=== PATIENT | female | born 2000 | race Caucasian/White ===

== ENCOUNTER 2022-02-18 11:06 | Outpatient (REF) | payer OTHER, SELFPAY ==
[2022-02-18 14:01] LABS: MANUAL DIFF FLAG NO
[2022-02-18 14:06] LABS: Basophils Percent Auto 0.5 % (0-2); Eosinophils Absolute Auto 0.1 X10*3/uL (0.0-0.4); Eosinophils Percent Auto 0.9 % (0-4); Hematocrit 42.3 % (37.0-47.0); Hemoglobin 14.2 g/dl (12.0-16.0); Imm Gran Abs Auto 0.02 X10*3/uL (0.00-0.03); Imm Gran Pct Auto 0.3 % (0.0-0.4); Lymphocytes Absolute Auto 3.4 X10*3/uL (1.2-4.9); Lymphocytes Percent Auto 51.1 % (20-40); Mean Corpuscular HGB Conc 33.6 g/dl (31.0-35.0); Mean Corpuscular Volume 83.4 fL (80.0-98.0); Mean Platelet Volume 9.6 fL (9.4-12.3); Monocytes Absolute Auto 0.6 X10*3/uL (0.1-1.2); Monocytes Percent Auto 8.7 % (2-11); Neutrophils Absolute Auto 2.5 x10*3/uL (2.0-8.3); Neutrophils Percent Auto 38.5 % (45-73); Platelet Count 338 X10*3/uL (160-400); Red Blood Count 5.07 X10*6/uL (4.20-5.50); Red Cell Distribution Width 12.9 % (11.0-16.0); White Blood Count 6.6 X10*3/uL (4.8-10.8)
[2022-02-18 14:28] LABS: Alanine Aminotransferase 16 U/L (0-31); Albumin Level 4.6 g/dL (3.5-5.0); Alkaline Phosphatase 61 U/L (39-117); Anion Gap 18 (12-20); Aspartate Amino Transferase 15 U/L (5-31); Bilirubin Total 0.2 mg/dL (0.0-1.0); Blood Urea Nitrogen 14 mg/dL (9-16); Calcium 9.6 mg/dL (8.4-10.2); Carbon Dioxide 26 mmol/L (22-29); Chloride 103 mmol/L (96-108); Estimated Glomerular Filt Rate > 60; Glucose Random 108 mg/dL (60-115); Potassium 4.1 mmol/L (3.3-5.1); Sodium 143 mmol/L (135-145); Total Protein 7.7 g/dL (6.5-8.0)
[2022-02-18 14:40] LABS: TSH reflex Free T4 0.21 uIU/mL (0.32-4.0); Vitamin D 25-OH Total 30.2 ng/mL (>30)
[2022-02-18 15:05] LABS: Folate > 20.0 ng/mL (> or = 4.0); Vitamin B12 416 pg/mL (200-900)
[2022-02-18 15:17] LABS: Free T4 (Free Thyroxine) 1.29 ng/dL (0.71-1.85)
== END 2022-02-18 11:07 | disposition home or self-care (01) ==
LOC: HO.WFDLDS 11:06
PROVIDERS: Visit Provider Nurse Practitioner Family
DX: Z00.00 Encounter for general adult medical examination without abnormal findings (principal); R53.83 Other fatigue
CPT/HCPCS: 36415; 80053; 82306; 82607; 82746; 84439; 84443; 85025

== ENCOUNTER → 2022-03-01 08:02 | Outpatient (BNVA) | payer OTHER, SELFPAY | PROVIDERS: PCP Nurse Practitioner Family; Visit Provider Internal Medicine Endocrinology, Diabetes & Metabolism | DX: R94.6 Abnormal results of thyroid function studies (principal) | CPT/HCPCS: 36415; 84439; 84443; 84481; 99202 ==

== ENCOUNTER 2022-03-01 09:34 | Outpatient (REF) | payer OTHER, SELFPAY ==
[2022-03-01 12:23] LABS: Thyroid Stimulating Hormone 0.41 uIU/mL (0.32-4.0)
[2022-03-02 15:56] LABS: Triiodothyronine T3 Free 3.6 pg/mL (3.0-4.7)
== END 2022-03-01 09:35 | disposition home or self-care (01) ==
LOC: HO.WFDLDS 09:34
PROVIDERS: Visit Provider Internal Medicine Endocrinology, Diabetes & Metabolism
DX: Z13.89 Encounter for screening for other disorder (principal)
CPT/HCPCS: 36415; 84439; 84443; 84481

== ENCOUNTER 2022-03-29 10:35 | Outpatient (REF) | payer OTHER, SELFPAY ==
--- NOTE | ~2022-03-29 | FL_ITS ---
EXAMINATION: UPPER GI/BARIUM SWALLOW CLINICAL INFORMATION: Dysphagia COMPARISON: None TECHNIQUE: Routine barium swallow/upper GI air-contrast exam was performed in upright and lying position. FINDINGS: Following oral administration of thick barium and effervescent granules there is normal propagation of bolus from the oral cavity through the pharynx, esophagus into stomach without any evidence of obstruction, narrowing or stricture. On placing patient prone and supine the course, caliber and peristalsis of the stomach and the duodenal bulb is normal. There is mild gastroesophageal reflux without hiatal hernia. The mucosal pattern of the stomach, duodenal bulb and the sweep is normal. FL/FL upper GI w Ba Swallow IMPRESSION: Minimal gastroesophageal reflux without hiatal hernia. The esophagus and upper GI exam is unremarkable. Fluoroscopy time: 2.3 minutes. Dose area product: 30.152 gycm2.
== END 2022-03-29 10:36 | disposition home or self-care (01) ==
LOC: HO.XRAY 10:35
PROVIDERS: PCP Nurse Practitioner Family; Visit Provider Nurse Practitioner Family
DX: R13.10 Dysphagia, unspecified (principal)
CPT/HCPCS: 74240

== ENCOUNTER 2023-03-22 15:02 | Outpatient (AMB) | payer OTHER, SELFPAY ==
[2023-03-22 15:06] VITALS: BP 124/90; PULSE 75; O2SAT 99; BMI 29.2
--- NOTE | 2023-03-22 15:06 | MHC.PC.OV ---
Vital Signs 03/22/23 15:06 Height 5 ft 4.5 in Weight 173 lb BMI 29.2 BP 124/90 H Blood Pressure Location Lt brachial Position Sitting Pulse 75 Pulse Source Pulse Oximeter Pulse Oximetry (%) 99 Oxygen Delivery Method Room Air Intake Visit Reasons: Annual Exam Intake Note: Patient is here today for a physical. Customer Management Specialist Required: No Allergies No Known Allergies Allergy (Verified 03/22/23 15:14) Medication List - Last Reconciled 03/22/23 by VIKTOR Russo hydroxyzine HCl 25 mg PO BEDTIME PRN levonorgestrel-ethinyl estrad 0.1-20 mg-mcg (Sronyx) 1 tab PO DAILY Tobacco use date assessed: 03/22/23 Dental Screening Dental Screen Date: 03/22/23 Did you have a dental visit in the last 12 months?: Yes Did you have a dental problem in the last 6 months where you did not have access to dental care?: No Was dental information given to patient?: Patient has dentist HPI Annual Exam HPI Details Patient is a 22-year-old female who presents today for physical exam. Medical history significant for anxiety, ADHD, depression. Today we discussed patient's need for tetanus vaccine. Patient reports normal Pap smear 2022 with her engineering geologist at [facility]. Patient reports that she was on Adderall in the past for ADHD, she would like to restart Adderall as she will be starting school, she stopped taking Adderall in 2019, will refer to Psychiatry for an evaluation and treatment. Patient also reports that she was on sertraline in the past for depression/anxiety, she would like to restart this, not interested in counseling referral. No shortness of breath or chest pain. Requested TB test for school. [facility] Medical History (Updated 03/22/23 @ 16:13 by VIKTOR Russo) Low TSH level GERD (gastroesophageal reflux disease) Fatigue Difficulty swallowing Surgical History History of placement of ear tubes Hx of tonsillectomy Family History Mother Medical history unknown Father Medical history unknown Social History Housing: House Patient Tobacco Use Status: Former Tobacco user Tobacco use type: Cigarette Years Smoked: pt stated quit 2yrs ago e-Cigarette/Vaping Use: Currently Using service: No Current occupational status: employed Cognitive needs: No Hearing needs: No Vision needs: Yes (glasses) Questionnaire PHQ-9 Over the last 2 weeks, how often have you been bothered by any of the following problems? 1. Little interest or pleasure in doing things: not at all 2. Feeling down, depressed, or hopeless: not at all 3. Trouble falling or staying asleep, or sleeping too much: not at all 4. Feeling tired or having little energy: not at all 5. Poor appetite or overeating: not at all 6. Feeling bad about yourself - or that you are a failure or have let yourself or your family down: not at all 7. Trouble concentrating on things, such as reading the newspaper or watching television: not at all 8. Moving or speaking so slowly that other people could have noticed. Or the opposite - being so fidgety or restless that you have been moving around a lot more than usual: not at all 9. Thoughts that you would be better off or of hurting yourself in some way: not at all Total score: 0 Depression Screening Interpretation: Negative Depression Screening Done: Yes 07175 - PHQ-9 Billing: Yes Source: Developed by Drs. Lyndon Merchant, Sia Lind, Sachin Gurrola and colleagues, with an educational gulshan from [employer]. Thrive Questionnaire Date Thrive assessed: 03/24/22 AUDIT C Alcohol Use Questionnaire (AUDIT-C) 1. How often do you have a drink containing alcohol?: Never 2. How many drinks containing alcohol do you have on a typical day when you are drinking?: 1 or 2 (0) 3. How often do you have six or more drinks on one occasion?: Never Total Score: 0 Score Reviewed/Action Taken: No SHAAN-7 AMB Questionnaire SHAAN-7 Date SHAAN - 7 assessed: 03/22/23 Feeling nervous, anxious, or on edge: 0 = Not at all Not being able to stop or control worryin = Not at all Worrying too much about different things: 0 = Not at all Trouble relaxin = Not at all Being so restless that it is hard to sit still: 0 = Not at all Becoming easily annoyed or irritable: 0 = Not at all Feeling afraid as if something awful might happen: 0 = Not at all Total SHAAN-7 score (0-4 normal; 5-9 mild; 10-14 moderate; 15-21 severe): 0 Source: Developed by Drs. Lyndon Merchant, Sia Lind, Sachin Gurrola and colleagues, with an educational gulshan from [employer]. SHAAN-7 Assessment Billing SHAAN-7 Assessment Tool: SHAAN-7 Assessment 87689 Review of Systems Const Denies body aches, Denies chills, Denies fever(s) and Denies headache(s) Eyes Denies change in vision ENT Denies dizziness, Denies otalgia, Denies headache(s), Denies nasal discharge, Denies sinus pain and Denies sore throat Card Denies chest pain, Denies edema, Denies lightheadedness and Denies dyspnea Resp Denies cough, Denies dyspnea and Denies wheezing GI Denies abdominal pain, Denies constipation, Denies diarrhea, Denies nausea and Denies vomiting Denies dysuria Musc Denies myalgias Skin/Breast Denies rash Neuro Denies dizziness and Denies headache(s) Psych Reports anxiety and Reports depression Aller/Immun Denies wheezing Physical exam (Primary Care) Vital Signs: Last Vital Signs Pulse 75 03/22/23 15:06 BP 124/90 H 03/22/23 15:06 Pulse Ox 99 03/22/23 15:06 Oxygen Delivery Method Room Air 03/22/23 15:06 BMI result Body Mass Index 29.2 Tobacco/Smoking Status: Tobacco use Status Tobacco use date assessed 03/22/23 03/22/23 15:07 Patient Tobacco Use Status Former Tobacco user 03/22/23 15:07 Tobacco use type Cigarette 03/22/23 15:07 e-Cigarette/Vaping Use Currently Using 03/22/23 15:07 PHQ-9: PHQ-9 Score PHQ-9: Total score 0 03/22/23 15:18 Depression Screening Interpretation: Negative Thrive Assessment: Date of Thrive Assessment Date Thrive assessed 03/24/22 03/22/23 15:07 Const General: cooperative and no acute distress Orientation/consciousness: patient oriented x3 HENMT Head: Yes normocephalic and Yes atraumatic Ears: TM's normal bilaterally Face and sinus: Yes sinuses nontender Mouth: oropharynx normal and moist mucous membranes Throat: Yes posterior oropharynx normal Eyes General: appearance normal, both eyes and all related structures Pupils: Equal, round and reactive pupils present EOM: EOMs intact bilaterally Neck Neck: Yes normal visual inspection, Yes full ROM and Yes no lymphadenopathy Thyroid: Thyroid normal Resp Effort & Inspection: normal respiratory effort and able to speak in complete sentences Auscultation: clear to auscultation bilaterally, no crackles, no rales, no rhonchi and no wheezes Cardio Rate: regular rate Rhythm: regular rhythm Heart sounds: S1 normal heart sound present, S2 normal heart sound present and no murmurs GI Palpation (GI): Soft to palpation, not firm, nontender, no guarding, not rigid and no hepatosplenomegaly Auscultation: normal bowel sounds General: No CVA tenderness Back/Spine/Pelvis Back: No CVA tenderness Skin General skin exam: no rashes or lesions noted Neuro General: patient oriented x3 Cranial nerves: Yes Equal, round and reactive pupils present Gait exam (Neuro): Normal gait present Extrem General: Yes full ROM and No edema Immunizations Boostrix Tdap 2.5 Lf unit-8 mcg-5 Lf/0.5 mL intramuscular syringe Performing Provider: VIKTOR Russo [facility] Administered by: ARMANDO Perez on 03/22/23 15:45 Dose Route Admin Location Dispensed Lot Number Expiration Date [facility] 0.5 mL IM Left Deltoid 0.5 mL [id number] 04/12/25 [id number] [employer] VIS Given Date VIS Provided VIS Publication Date 03/22/23 Single Vaccine 20 Eligibility Eligibility Date Funding Source Not [facility] Eligible 03/22/23 Private Assessment and Plan Assessment & Plan (1) Screening for tuberculosis: Code(s): Z11.1 - Encounter for screening for respiratory tuberculosis (2) Adult general medical exam: Comment: No Covid IZs. manager skilled [facility] for control. Code(s): Z00.00 - Encounter for general adult medical examination without abnormal findings Plan: Blood work ordered (3) Depression: Code(s): F32.A - Depression, unspecified Qualifiers: Depression Type: other depression Qualified Code(s): F32.89 - Other specified depressive episodes Plan: Patient denies SI Start sertraline 25 mg daily-educated about possible adverse reactions and when to notify provider, if SI stop medication and go to emergency department for an evaluation Declined counseling referral Follow-up in 2 months (4) ADHD: Code(s): F90.9 - Attention-deficit hyperactivity disorder, unspecified type Plan: Psychiatry referral for an evaluation and treatment (5) Anxiety: Code(s): F41.9 - Anxiety disorder, unspecified Plan: Same as above Continue hydroxyzine 25 mg at bedtime p.r.n. Orders: Orders TSH reflex Free T4 Today Z00.00 - Encounter for general adult medical examination without abnormal findings Vitamin D 25-OH Total Today Z00.00 - Encounter for general adult medical examination without abnormal findings Comprehensive Met. Panel Today Z00.00 - Encounter for general adult medical examination without abnormal findings Complete Blood Count Auto Diff Today Z00.00 - Encounter for general adult medical examination without abnormal findings T Spot TB Today Z11.1 - Encounter for screening for respiratory tuberculosis TDaP Immunization Today Z23 - Encounter for immunization Referrals Psychiatry Referral F32.A - Depression, unspecified, F41.9 - Anxiety disorder, unspecified, F90.9 - Attention-deficit hyperactivity disorder, unspecified type Medications: New sertraline 25 mg PO DAILY 30 tabs 2RF F32.A - Depression, unspecified, F41.9 - Anxiety disorder, unspecified Coding Level of Care Code Est Pt Prev Care 18-39y(13672) Diagnoses Screening for tuberculosis Z11.1 Adult general medical exam Z00.00 Other depression F32.89 Depression Type: other depression ADHD F90.9 Anxiety F41.9 Additional Codes SHAAN-7 Assessment Billing - SHAAN-7 Assessment Tool: SHAAN-7 Assessment 10833 ([id number])
== END 2023-03-22 15:38 | disposition home or self-care (01) ==
PROVIDERS: Visit Provider Nurse Practitioner Family
DX: Z00.00 Encounter for general adult medical examination without abnormal findings (principal); Z11.1 Encounter for screening for respiratory tuberculosis; F32.89 Other specified depressive episodes; F90.9 Attention-deficit hyperactivity disorder, unspecified type; F41.9 Anxiety disorder, unspecified; Z23 Encounter for immunization
CPT/HCPCS: 90471; 90715; 99395

== ENCOUNTER 2023-05-30 08:47 | Outpatient (AMB) | payer OTHER, SELFPAY ==
--- NOTE | 2023-05-30 08:49 | A.OFFPC_ITS ---
Vital Signs 05/30/23 08:51 Height 5 ft 4.5 in Weight 170 lb 6 oz BMI 28.8 BP 130/80 Blood Pressure Location Lt brachial Position Sitting Pulse 72 Pulse Source Pulse Oximeter Pulse Oximetry (%) 98 Oxygen Delivery Method Room Air Intake Visit Reasons: F/U on depression/anxiety Intake Note: Patient is here to follow up on depression and anxiety. Process Tank Tender Required: No Software Requirements Engineer: Not Required per policy Accompanied by: Self / Same As Patient Allergies No Known Allergies Allergy (Verified 06/03/23 20:31) Medication List - Last Reconciled 06/03/23 by Bry Coelho MD levonorgestrel-ethinyl estrad 0.1-20 mg-mcg (Sronyx) 1 tab PO DAILY sertraline 50 mg PO DAILY Tobacco use date assessed: 05/30/23 Dental Screening Dental Screen Date: 05/30/23 Did you have a dental visit in the last 12 months?: Yes Did you have a dental problem in the last 6 months where you did not have access to dental care?: No Was dental information given to patient?: Patient has dentist HPI F/U on depression/anxiety HPI Details 22-year-old female presents to the offic e to discuss her medical conditions. I am assuming her care has her primary care provider has left the practice. Patient has history of depression and is taking Zoloft. In addition she is also taking medical marijuana. Patient is at baseline health and sleeping well. Her appetite is good. Does not exercise. She is requesting to increase her Zoloft to 50 mg. Patient also would like titers for measles mom's and rubella immunization. [facility] Medical History (Updated 06/03/23 @ 20:35 by Bry Coelho MD) Anxiety Low TSH level GERD (gastroesophageal reflux disease) Fatigue Difficulty swallowing Surgical History History of placement of ear tubes Hx of tonsillectomy Family History (Updated 05/30/23 @ 08:50 by ARMANDO Cornejo) Mother Medical history unknown Father Medical history unknown Social History (Updated 05/30/23 @ 08:55 by ARMANDO Cornejo) Housing: House Alcohol intake: never Patient Tobacco Use Status: Former Tobacco user Tobacco use type: Cigarette Years Smoked: pt stated quit 2yrs ago e-Cigarette/Vaping Use: Currently Using Second Hand Smoke Exposure: Yes service: No Current occupational status: employed Cognitive needs: No Hearing needs: No Vision needs: Yes (glasses) Questionnaire PHQ-9 Over the last 2 weeks, how often have you been bothered by any of the following problems? 1. Little interest or pleasure in doing things: not at all 2. Feeling down, depressed, or hopeless: several days (currently on medication) 3. Trouble falling or staying asleep, or sleeping too much: not at all 4. Feeling tired or having little energy: not at all 5. Poor appetite or overeating: not at all 6. Feeling bad about yourself - or that you are a failure or have let yourself or your family down: not at all 7. Trouble concentrating on things, such as reading the newspaper or watching television: not at all 8. Moving or speaking so slowly that other people could have noticed. Or the opposite - being so fidgety or restless that you have been moving around a lot more than usual: not at all 9. Thoughts that you would be better off or of hurting yourself in some way: not at all Total score: 1 Source: Developed by Drs. Lyndon Merchant, Sia Lind, Sachin Gurrola and colleagues, with an educational gulshan from [employer]. Thrive Questionnaire Date Thrive assessed: 05/30/23 I am a: Patient What is your living situation today?: I have a steady place to live Within the past 12 months, did the food you bought not last and you didn't have the money to get more?: Never true Within the past 12 months, did you worry whether your food would run out before you got money to buy more?: Never true Do you have trouble paying for medicines?: No Do you have trouble getting transportation to medical appointments?: No Do you have trouble paying your heating and electricity bill?: No Do you have trouble taking care of your child, family member or friend?: No Do you have trouble with day-to-day activities such as bathing, preparing meals, shopping, managing finances, etc.?: No Are you currently unemployed and looking for a job?: No Are you interested in more education?: No Currently or been in a relationship where the following occur: no concerns reported THRIVE Score: 0 AUDIT C Alcohol Use Questionnaire (AUDIT-C) 1. How often do you have a drink containing alcohol?: Never Total Score: 0 SHAAN-7 AMB Questionnaire SHAAN-7 Date SHAAN - 7 assessed: 05/30/23 Feeling nervous, anxious, or on edge: 1 = Several days (currently on medication) Not being able to stop or control worryin = Not at all Worrying too much about different things: 0 = Not at all Trouble relaxin = Not at all Being so restless that it is hard to sit still: 0 = Not at all Becoming easily annoyed or irritable: 0 = Not at all Feeling afraid as if something awful might happen: 0 = Not at all Total SHAAN-7 score (0-4 normal; 5-9 mild; 10-14 moderate; 15-21 severe): 1 Source: Developed by Drs. Lyndon Merchant, Sia Lind, Sachin Gurrola and colleagues, with an educational gulshan from [employer]. Physical exam (Primary Care) Vital Signs: Last Vital Signs Pulse 72 05/30/23 08:51 BP 130/80 05/30/23 08:51 Pulse Ox 98 05/30/23 08:51 Oxygen Delivery Method Room Air 05/30/23 08:51 BMI result Body Mass Index 28.8 Tobacco/Smoking Status: Tobacco use Status Tobacco use date assessed 05/30/23 05/30/23 08:57 Patient Tobacco Use Status Former Tobacco user 05/30/23 08:57 Tobacco use type Cigarette 05/30/23 08:57 e-Cigarette/Vaping Use Currently Using 05/30/23 08:57 PHQ-9: PHQ-9 Score PHQ-9: Total score 1 05/30/23 08:57 Thrive Assessment: Date of Thrive Assessment Date Thrive assessed 05/30/23 05/30/23 08:57 Currently or been in a relationship where the following occur: no concerns reported Const General: cooperative and healthy appearing Nutritional Appearance: well nourished Orientation/consciousness: patient oriented x3 Limitations: no limitations HENMT Head: Yes normal to inspection Eyes General: appearance normal, both eyes and all related structures Neck Neck: Yes normal visual inspection Chest Chest palpation & inspection: normal palpation of entire chest wall Resp Effort & Inspection: normal respiratory effort Neuro General: patient oriented x3 Assessment and Plan Assessment & Plan (1) Anxiety: Code(s): F41.9 - Anxiety disorder, unspecified Plan: Zoloft was increased to 50 mg once a day. Titers were ordered. Orders: Orders Liver Panel 05/30/23 Z11.9 - Encounter for screening for infectious and parasitic diseases, unspecified T Spot TB 05/30/23 Z02.0 - Encounter for examination for admission to educational institution, Z11.9 - Encounter for screening for infectious and parasitic diseases, unspecified Rubeola IgG (Measles) 05/30/23 Z11.9 - Encounter for screening for infectious and parasitic diseases, unspecified Varicella IgG Antibody 05/30/23 Z11.9 - Encounter for screening for infectious and parasitic diseases, unspecified Rubella IgG Antibody 05/30/23 Z11.9 - Encounter for screening for infectious and parasitic diseases, unspecified Mumps Virus IgG Antibody 05/30/23 Z11.9 - Encounter for screening for infectious and parasitic diseases, unspecified Medications: New sertraline 50 mg PO DAILY 90 tabs 1RF Discontinued hydroxyzine HCl Discontinued Reason: Doctor's Order 25 mg PO BEDTIME PRN 10 tabs 0RF anxiety F41.9 - Anxiety disorder, unspecified Coding Level of Care Code Est Pt Level 4 (85212) Diagnoses Anxiety F41.9
[2023-05-30 08:51] VITALS: BP 130/80; PULSE 72; O2SAT 98; BMI 28.8
== END 2023-05-30 09:40 | disposition home or self-care (01) ==
PROVIDERS: PCP Internal Medicine; Visit Provider Internal Medicine
DX: F41.9 Anxiety disorder, unspecified (principal)
CPT/HCPCS: 99214

== ENCOUNTER 2023-05-30 09:48 | Outpatient (REF) | payer OTHER, SELFPAY ==
[2023-05-30 12:31] LABS: Alanine Aminotransferase 23 U/L (0-31); Albumin Level 4.5 g/dL (3.5-5.0); Alkaline Phosphatase 50 U/L (39-117); Aspartate Amino Transferase 15 U/L (5-31); Bilirubin Direct 0.1 mg/dL (0.0-0.5); Bilirubin Total 0.4 mg/dL (0.0-1.0); Total Protein 7.7 g/dL (6.5-8.0)
[2023-05-31 21:38] LABS: Rubeola IgG (Measles) >300.00 AU/mL
[2023-06-02 08:53] LABS: TS Negative Control Passed; TS Panel A 0; TS Panel B 0; TS Positive Control Passed; TSpotTB Negative (Negative)
== END 2023-05-30 09:49 | disposition home or self-care (01) ==
LOC: HO.LAB 09:48
PROVIDERS: Visit Provider Internal Medicine
DX: Z02.0 Encounter for examination for admission to educational institution (principal)
CPT/HCPCS: 36415; 80076; 86481; 86735; 86762; 86765; 86787

== ENCOUNTER 2023-08-03 15:13 | Outpatient (AMB) | payer OTHER, SELFPAY ==
--- NOTE | 2023-08-03 15:23 | MHC.PC.OV ---
Vital Signs 08/03/23 15:34 Height 5 ft 4.5 in Weight 170 lb 4 oz BMI 28.8 BP 142/98 H Blood Pressure Location Lt brachial Position Sitting Respiration 17 Pulse 75 Pulse Source Pulse Oximeter Pulse Oximetry (%) 100 Oxygen Delivery Method Room Air Intake Visit Reasons: Follow Up On Blood Pressure Intake Note: Dr. Coelho pt here for a blood pressure check and is currently not taking any BP medication. Media Marketing Specialist Required: No Accompanied by: Self / Same As Patient Allergies No Known Allergies Allergy (Verified 08/03/23 15:44) Medication List - Last Reconciled 08/03/23 by Raghu Busby PA-C levonorgestrel-ethinyl estrad 0.1-20 mg-mcg (Sronyx) 1 tab PO DAILY sertraline 50 mg PO DAILY Tobacco use date assessed: 05/30/23 HPI Follow Up On Blood Pressure HPI Details Patient is a 23-year-old female here today for follow-up on her blood pressure. Today's blood pressure in office slightly elevated. Has had elevated blood pressure readings at other medical visits. Patient does report having higher blood pressure during her . She has been monitoring her blood pressure at work and have noted systolic blood pressures 140s to 150s consistently. Otherwise patient asymptomatic without any headache, dizziness chest pains or vision issues. [facility] Medical History Anxiety Low TSH level GERD (gastroesophageal reflux disease) Fatigue Difficulty swallowing Surgical History History of placement of ear tubes Hx of tonsillectomy Family History Mother Medical history unknown Father Medical history unknown Social History Housing: House Alcohol intake: never Patient Tobacco Use Status: Former Tobacco user Tobacco use type: Cigarette Years Smoked: pt stated quit 2yrs ago e-Cigarette/Vaping Use: Currently Using Second Hand Smoke Exposure: Yes service: No Current occupational status: employed Cognitive needs: No Hearing needs: No Vision needs: Yes (glasses) Questionnaire Thrive Questionnaire Date Thrive assessed: 05/30/23 SHAAN-7 AMB Questionnaire SHAAN-7 Date SHAAN - 7 assessed: 05/30/23 Source: Developed by Drs. Lyndon Merchant, Sia Lind, Sachin Gurrola and colleagues, with an educational gulshan from [employer]. Review of Systems Const Denies headache(s) Eyes Denies loss of vision ENT Denies vertigo, Denies dizziness, Denies headache(s) and Denies sore throat Card Denies chest pain, Denies leg edema and Denies lightheadedness Resp Denies cough, Denies hemoptysis and Denies wheezing GI Denies abdominal pain, Denies melena, Denies constipation, Denies diarrhea and Denies vomiting Denies urinary frequency, Denies dysuria and Denies urinary urgency Musc Denies arthralgias, Denies joint swelling, Denies numbness and Denies tingling Neuro Denies Abnormal speech present, Denies behavioral changes, Denies vertigo, Denies dizziness, Denies headache(s), Denies loss of vision, Denies memory loss, Denies numbness and Denies tingling Psych Denies anxiety, Denies behavioral changes, Denies depression, Denies memory loss and Denies panic attacks Mike/Lymph Denies easy bleeding and Denies easy bruising Aller/Immun Denies wheezing Physical exam (Primary Care) Vital Signs: Last Vital Signs Pulse 75 08/03/23 15:34 Resp 17 08/03/23 15:34 BP 142/98 H 08/03/23 15:34 Pulse Ox 100 08/03/23 15:34 Oxygen Delivery Method Room Air 08/03/23 15:34 BMI result Body Mass Index 28.8 Tobacco/Smoking Status: Tobacco use Status Tobacco use date assessed 05/30/23 08/03/23 15:24 Patient Tobacco Use Status Former Tobacco user 08/03/23 15:24 Tobacco use type Cigarette 08/03/23 15:24 e-Cigarette/Vaping Use Currently Using 08/03/23 15:24 Thrive Assessment: Date of Thrive Assessment Date Thrive assessed 05/30/23 08/03/23 15:24 Const General: healthy appearing, no acute distress, alert and awake Nutritional Appearance: well nourished Orientation/consciousness: oriented to person, oriented to place and oriented to time HENMT Ears: TM's normal bilaterally General nose exam: Normal nasal mucous membranes and turbinates present Eyes Conjunctivae: conjunctivae normal Sclerae: sclerae normal Pupils: Equal, round and reactive pupils present Neck Neck: Yes no lymphadenopathy and Yes no JVD Thyroid: Thyroid normal Carotids: no bruits Resp Effort & Inspection: normal respiratory effort and not tachypneic Auscultation: no crackles, no rales, no rhonchi and no wheezes Cardio Rate: regular rate Rhythm: regular rhythm Heart sounds: no murmurs and normal S1 and S2 GI Palpation (GI): Soft to palpation, nontender, no hepatomegaly and no splenomegaly Auscultation: normal bowel sounds Skin General skin exam: no rashes or lesions noted and dry skin Neuro General: oriented to person, oriented to place and oriented to time Cranial nerves: Yes Equal, round and reactive pupils present Speech: No Abnormal speech present Gait exam (Neuro): Normal gait present Motor exam (neuro): no tremor noted Extrem Right upper extremity: full ROM Left upper extremity: full ROM Right lower extremity: full ROM; no edema Left lower extremity: full ROM; no edema Psych Mental Status: mental status grossly normal Speech and movement: Normal speech and movement present Affect: normal affect Attitude: cooperative Thought process: Normal thought process present Assessment and Plan Assessment & Plan (1) HTN (hypertension): Code(s): I10 - Essential (primary) hypertension Qualifiers: Hypertension type: primary hypertension Qualified Code(s): I10 - Essential (primary) hypertension Plan: Patient's pressure elevated today in offic. She has been monitoring blood pressure at work and is consistently 140s to 150 systolic. She is willing to start low-dose hydrochlorothiazide and monitor blood pressure at home. Medications: New hydrochlorothiazide 12.5 mg PO DAILY 30 days 30 tabs 1RF I10 - Essential (primary) hypertension Coding Level of Care Code Est Pt Level 3 (95364) Diagnoses Primary hypertension I10 Hypertension type: primary hypertension
[2023-08-03 15:34] VITALS: BP 142/98; PULSE 75; RESP 17; O2SAT 100; BMI 28.8
== END 2023-08-03 16:02 | disposition home or self-care (01) ==
PROVIDERS: PCP Internal Medicine; Visit Provider Physician Assistant
DX: I10 Essential (primary) hypertension (principal)
CPT/HCPCS: 99213

== ENCOUNTER 2023-08-17 13:09 | Outpatient (AMB) | payer OTHER, SELFPAY ==
--- NOTE | 2023-08-17 13:24 | MHC.PC.OV ---
Vital Signs 08/17/23 13:26 Height 5 ft 4.5 in Weight 172 lb BMI 29.1 BP 138/80 Blood Pressure Location Lt brachial Position Sitting Pulse 79 Pulse Source Pulse Oximeter Pulse Oximetry (%) 96 Oxygen Delivery Method Room Air Intake Visit Reasons: f/u HTN - blood pressure reading- Intake Note: Patient is here to follow up on HTN. Cover Mat Machine Operator Required: No Blacking Wheel Tender: Not Required per policy Accompanied by: Self / Same As Patient Allergies No Known Allergies Allergy (Verified 08/17/23 13:26) Tobacco use date assessed: 08/17/23 Dental Screening Dental Screen Date: 05/30/23 HPI f/u HTN - blood pressure reading- HPI Details 23-year-old female presents to the office for a follow-up visit. Patient stopped her hydrochlorothiazide a few days ago. Brings in her blood pressure log to review. Her blood pressure log includes blood pressure readings as 162/107, 144/114, 183/124 etcetera. In her last visit I had started her on Zoloft. Patient never picked up the prescription. She does not believe she needs the medication. 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 Admits to vaping. Denies any other substance use. Patient was on Adderall last year which she has not taking right now. [facility] Medical History Anxiety Low TSH level GERD (gastroesophageal reflux disease) Fatigue Difficulty swallowing Surgical History History of placement of ear tubes Hx of tonsillectomy Family History Mother Medical history unknown Father Medical history unknown Social History Housing: House Alcohol intake: current Alcohol intake frequency: holidays/special occasions only Patient Tobacco Use Status: Former Tobacco user Tobacco use type: Cigarette Years Smoked: pt stated quit 2yrs ago e-Cigarette/Vaping Use: Currently Using Second Hand Smoke Exposure: Yes service: No Current occupational status: employed Cognitive needs: No Hearing needs: No Vision needs: Yes (glasses) Questionnaire Thrive Questionnaire Date Thrive assessed: 05/30/23 SHAAN-7 AMB Questionnaire SHAAN-7 Date SHAAN - 7 assessed: 05/30/23 Source: Developed by Drs. Lyndon Merchant, Sia Lind, Sachin Gurrola and colleagues, with an educational gulshan from [email or web address]. Physical exam (Primary Care) Vital Signs: Last Vital Signs Pulse 79 08/17/23 13:26 BP 138/80 08/17/23 13:26 Pulse Ox 96 08/17/23 13:26 Oxygen Delivery Method Room Air 08/17/23 13:26 BMI result Body Mass Index 29.1 Tobacco/Smoking Status: Tobacco use Status Tobacco use date assessed 08/17/23 08/17/23 13:31 Patient Tobacco Use Status Former Tobacco user 08/17/23 13:31 Tobacco use type Cigarette 08/17/23 13:31 e-Cigarette/Vaping Use Currently Using 08/17/23 13:31 Are you ready to quit: No Tobacco cessation counseling provided: No Thrive Assessment: Date of Thrive Assessment Date Thrive assessed 05/30/23 08/17/23 13:31 Const General: cooperative and healthy appearing Nutritional Appearance: well nourished Orientation/consciousness: patient oriented x3 Limitations: no limitations HENMT Head: Yes normal to inspection Eyes General: appearance normal, both eyes and all related structures Neck Neck: Yes normal visual inspection Chest Chest palpation & inspection: normal palpation of entire chest wall Resp Effort & Inspection: normal respiratory effort Neuro General: patient oriented x3 Assessment and Plan Assessment & Plan (1) HTN (hypertension): Code(s): I10 - Essential (primary) hypertension Qualifiers: Hypertension type: primary hypertension Qualified Code(s): I10 - Essential (primary) hypertension Plan: Hydrochlorothiazide has been discontinued. I believe her elevated blood pressures is coming from her underlying anxiety state. Thyroid disorder has to be ruled out. Patient in the past has been on Zoloft and Adderall. She has not taking either. Encouraged her to communicate via the portal and report her blood pressures. Will call with results of the blood work. 20 minutes spent with patient on counseling. Orders: Orders Lipid Panel Today I10 - Essential (primary) hypertension T Spot TB Today I10 - Essential (primary) hypertension, Z02.0 - Encounter for examination for admission to educational institution Basic Metabolic Panel Today I10 - Essential (primary) hypertension Complete Blood Count no Diff Today I10 - Essential (primary) hypertension Liver Panel Today I10 - Essential (primary) hypertension Thyroid Stimulating Hormone Today I10 - Essential (primary) hypertension UA and rflx microscopic Today I10 - Essential (primary) hypertension Hepatitis B Surface Antibody Today I10 - Essential (primary) hypertension Medications: Discontinued hydrochlorothiazide Discontinued Reason: Doctor's Order 12.5 mg PO DAILY 30 days 30 tabs 1RF I10 - Essential (primary) hypertension Coding Level of Care Code Est Pt Level 4 (27900) Diagnoses Primary hypertension I10 Hypertension type: primary hypertension
[2023-08-17 13:26] VITALS: BP 138/80; PULSE 79; O2SAT 96; BMI 29.1
== END 2023-08-17 13:52 | disposition home or self-care (01) ==
PROVIDERS: PCP Internal Medicine; Visit Provider Internal Medicine
DX: I10 Essential (primary) hypertension (principal)
CPT/HCPCS: 99214

== ENCOUNTER 2023-08-17 14:12 | Outpatient (REF) | payer OTHER, SELFPAY ==
[2023-08-17 14:52] LABS: Hematocrit 41.8 % (37.0-47.0); Hemoglobin 14.3 g/dl (12.0-16.0); Mean Corpuscular HGB Conc 34.2 g/dl (31.0-35.0); Mean Corpuscular Hemoglobin 28.8 pg (27.0-33.0); Mean Corpuscular Volume 84.3 fL (80.0-98.0); Mean Platelet Volume 9.5 fL (9.4-12.3); Platelet Count 272 X10*3/uL (160-400); Red Blood Count 4.96 X10*6/uL (4.20-5.50); Red Cell Distribution Width 12.1 % (11.0-16.0); White Blood Count 6.9 X10*3/uL (4.8-10.8)
[2023-08-17 14:55] LABS: Appearance Urine Clear; Color Urine Yellow; Glucose Urine UA Negative (Negative); Leukocyte Esterase Urine Small (1+) (Negative); Nitrite Urine Negative (Negative); Specific Gravity - Urine 1.025 (1.005-1.025); UMIC TRIGGER UA YES; Urine Blood Negative (Negative); Urine Ketones Negative (Negative); Urine Protein Negative (Neg-Trace)
[2023-08-17 15:41] LABS: Alanine Aminotransferase 62 U/L (0-31); Albumin Level 4.4 g/dL (3.5-5.0); Alkaline Phosphatase 61 U/L (39-117); Anion Gap 11 (12-20); Aspartate Amino Transferase 75 U/L (5-31); Bilirubin Direct 0.1 mg/dL (0.0-0.5); Bilirubin Total 0.3 mg/dL (0.0-1.0); Blood Urea Nitrogen 13 mg/dL (9-16); Calcium 9.6 mg/dL (8.4-10.2); Carbon Dioxide 27 mmol/L (22-29); Chloride 106 mmol/L (96-108); Cholesterol 189 mg/dL (<200); Estimated Glomerular Filt Rate > 60; Glucose Random 89 mg/dL (60-115); HDL Cholesterol 46 mg/dL (>40); LDL Cholesterol Calculated 115 mg/dL (<100); Potassium 4.3 mmol/L (3.3-5.1); Sodium 140 mmol/L (135-145); Total Protein 7.7 g/dL (6.5-8.0); Triglycerides 140 mg/dL (<150)
[2023-08-17 15:58] LABS: Thyroid Stimulating Hormone 1.31 uIU/mL (0.32-4.0)
[2023-08-17 16:01] LABS: Bacteria Urine 1+ (None Seen); Hyaline Casts Urine 0-2 /LPF (0-2); RBC Urine 0-2 /HPF (0-2)
[2023-08-18 03:24] LABS: HBS Num1 0.49 mIU/mL (0-7.99); ~Hepatitis B Surface Antibody NONREACTIVE (Nonreactive)
[2023-08-19 21:43] LABS: TS Negative Control Passed; TS Panel A 0; TS Panel B 0; TS Positive Control Passed; TSpotTB Negative (Negative)
== END 2023-08-17 14:13 | disposition home or self-care (01) ==
LOC: HO.LAB 14:12
PROVIDERS: PCP Internal Medicine; Visit Provider Internal Medicine
DX: Z02.0 Encounter for examination for admission to educational institution (principal); I10 Essential (primary) hypertension
CPT/HCPCS: 36415; 80048; 80061; 80076; 81001; 84443; 85027; 86481; 86706

== ENCOUNTER 2023-08-31 09:03 | Outpatient (AMB) | payer OTHER, SELFPAY ==
--- NOTE | 2023-08-31 09:15 | AM.OFFVISNUR ---
Intake Intake Visit Reasons: Hep B shot Allergies No Known Allergies Allergy (Verified 08/17/23 13:26) Immunizations Recombivax HB (PF) 10 mcg/mL intramuscular suspension Performing Provider: Bry Coelho MD [place] [facility] Administered by: Socorro Barron RN on 08/31/23 09:19 Dose Route Admin Location Dispensed Lot Number Expiration Date NDC Otm Consultant 1 mL IM Left Deltoid 1 mL [id number] 09/23/24 13150-726-53 [employer] VIS Given Date VIS Provided VIS Publication Date 08/31/23 Single Vaccine 22 Eligibility Eligibility Date Funding Source Not [facility] Eligible 08/31/23 Private Coding Assessment & Plan Assessment & Plan Orders: Orders Hepatitis B Adult Immunization Today Z23 - Encounter for immunization Medications: New Recombivax HB (PF) (hepatitis B virus vacc.rec(PF)) 1.0 mL IM ONCE 1 mL 0RF NS Z23 - Encounter for immunization
== END 2023-08-31 09:24 | disposition home or self-care (01) ==
LOC: HO.HMGH 09:03
PROVIDERS: PCP Internal Medicine; Visit Provider Internal Medicine
DX: Z23 Encounter for immunization (principal)
CPT/HCPCS: 90471; 90746

== ENCOUNTER 2023-11-23 10:05 | Outpatient (AMB) | payer OTHER, SELFPAY ==
--- NOTE | 2023-11-23 10:20 | MHC.PC.OV ---
Vital Signs 11/23/23 10:21 Height 5 ft 4.5 in Weight 182 lb 2 oz BMI 30.8 BP 130/72 Blood Pressure Location Lt brachial Position Sitting Pulse 63 Pulse Source Pulse Oximeter Pulse Oximetry (%) 99 Oxygen Delivery Method Room Air Intake Visit Reasons: 6 moth f/u Intake Note: Patient is here to follow up on HTN, ADHD. Broadband Installer Required: No Author: Not Required per policy Accompanied by: Self / Same As Patient Allergies No Known Allergies Allergy (Verified 11/23/23 10:21) Tobacco use date assessed: 11/23/23 Dental Screening Dental Screen Date: 05/30/23 HPI 6 moth f/u HPI Details 23-year-old female presents to the office for a follow-up visit. Patient is currently on no medications. After she tested negative for marijuana, her blood pressure came back to normal. She is not interested in taking any medications for anxiety. Lives with her 3-year-old and grandparents. Able to work and do all activities of daily living. [facility] [place] Medical History Anxiety Low TSH level GERD (gastroesophageal reflux disease) Fatigue Difficulty swallowing Surgical History History of placement of ear tubes Hx of tonsillectomy Family History Mother Medical history unknown Father Medical history unknown Social History Housing: House Alcohol intake: current Alcohol intake frequency: holidays/special occasions only Patient Tobacco Use Status: Former Tobacco user Tobacco use type: Cigarette Years Smoked: pt stated quit 2yrs ago e-Cigarette/Vaping Use: Currently Using Second Hand Smoke Exposure: Yes service: No Current occupational status: employed Cognitive needs: No Hearing needs: No Vision needs: Yes (glasses) Questionnaire Thrive Questionnaire Date Thrive assessed: 05/30/23 SHAAN-7 AMB Questionnaire SHAAN-7 Date SHAAN - 7 assessed: 05/30/23 Source: Developed by Drs. Lyndon Merchant, Sia Lind, Sachin Gurrola and colleagues, with an educational gulshan from [employer]. Physical exam (Primary Care) Vital Signs: Last Vital Signs Pulse 63 11/23/23 10:21 BP 130/72 11/23/23 10:21 Pulse Ox 99 11/23/23 10:21 Oxygen Delivery Method Room Air 11/23/23 10:21 BMI result Body Mass Index 30.8 Tobacco/Smoking Status: Tobacco use Status Tobacco use date assessed 11/23/23 11/23/23 10:24 Patient Tobacco Use Status Former Tobacco user 11/23/23 10:20 Tobacco use type Cigarette 11/23/23 10:20 e-Cigarette/Vaping Use Currently Using 11/23/23 10:20 Thrive Assessment: Date of Thrive Assessment Date Thrive assessed 05/30/23 11/23/23 10:20 Const General: cooperative and healthy appearing Nutritional Appearance: well nourished Orientation/consciousness: patient oriented x3 Limitations: no limitations HENMT Head: Yes normal to inspection Eyes General: appearance normal, both eyes and all related structures Neck Neck: Yes normal visual inspection Chest Chest palpation & inspection: normal palpation of entire chest wall Resp Effort & Inspection: normal respiratory effort Neuro General: patient oriented x3 Assessment and Plan Assessment & Plan (1) HTN (hypertension): Code(s): I10 - Essential (primary) hypertension Qualifiers: Hypertension type: primary hypertension Qualified Code(s): I10 - Essential (primary) hypertension Plan: Blood pressure is in range without any medications. No medications are needed at present. Continue to monitor the blood pressures. Should they tend to go higher, patient was advised to make a follow-up appointment here. (2) Anxiety: Code(s): F41.9 - Anxiety disorder, unspecified Plan: Currently on no medications including Zoloft or medications for ADHD. Patient prefers not to take any medications. I agree with her plan. Coding Level of Care Code Est Pt Level 4 (46120) Complex EM visit Add On G2211 Diagnoses Primary hypertension I10 Hypertension type: primary hypertension Anxiety F41.9
[2023-11-23 10:21] VITALS: BP 130/72; PULSE 63; O2SAT 99; BMI 30.8
== END 2023-11-23 10:57 | disposition home or self-care (01) ==
PROVIDERS: PCP Internal Medicine; Visit Provider Internal Medicine
DX: I10 Essential (primary) hypertension (principal); F41.9 Anxiety disorder, unspecified
CPT/HCPCS: 99214; G2211

== ENCOUNTER 2024-03-28 15:22 | Outpatient (AMB) | payer OTHER, SELFPAY ==
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
[2024-03-28 15:42] VITALS: BP 120/70; PULSE 93; O2SAT 98; BMI 33.4
== END 2024-03-28 16:18 | disposition home or self-care (01) ==
PROVIDERS: PCP Internal Medicine; Visit Provider Internal Medicine
DX: F41.9 Anxiety disorder, unspecified (principal); Z00.00 Encounter for general adult medical examination without abnormal findings

== ENCOUNTER → 2024-03-28 15:22 | Outpatient (BNVA) | payer OTHER, SELFPAY | PROVIDERS: PCP Internal Medicine; Visit Provider Internal Medicine | DX: Z00.00 Encounter for general adult medical examination without abnormal findings (principal); F41.9 Anxiety disorder, unspecified | CPT/HCPCS: 99395 ==

== ENCOUNTER 2024-04-22 15:35 | Outpatient (AMB) | payer OTHER, SELFPAY ==
--- NOTE | 2024-04-22 15:36 | A.OFFPC_ITS ---
Intake Visit Reasons: Abdominal Pain, SOB, Palpation Intake Note: Patient is here to follow up on Abdominal pain, SOB, Palpation. Culinary Artist Required: No Pet Caretaker: Not Required per policy Accompanied by: Self / Same As Patient Allergies No Known Allergies Allergy (Verified 04/22/24 16:01) Medication List - Last Reconciled 04/22/24 by Aby Ortiz PA-C desogestrel-ethinyl estradiol 0.15-0.03 mg (Apri) tabs PO omeprazole 20 mg PO BID Tobacco use date assessed: 04/22/24 Dental Screening Dental Screen Date: 05/30/23 HPI Abdominal Pain, SOB, Palpation HPI Details 23-year-old female presenting through [facility] visit with complaints of fatigue, malaise, chills, sweats, nausea, heart palpitations, shortness of breath, dyspnea on exertion, generalized abdominal pain mainly in the upper aspect, increased urination over the past few weeks. She reports the abdominal pain is worse at night or after eating any meals or drinking any fluids. She also reports after eating small amount of food her appetite is completely gone after a few bites. She reports that she occasionally does take omeprazole although has not been taking it consistently. She reports that in the past she has taken Maalox and she does not like the way this taste therefore she does not want to take this again. She is concerned all the symptoms may be related to having thyroid disease. She reports that her thyroid levels in the past have been ?off?. She is not on any medication for thyroid. She is not on any other medications other than omeprazole and control. She feels like her stress level has been at a normal state no increased stressors. She denies any changes in diet. She reports she has had weight loss from 197 lb to 180 lb in the past month. She denies any measured fevers, vomiting, diarrhea, constipation, black or bloody stools, hematuria or any other symptoms complaints or concerns. She denies any recent travel or sick contacts that she is aware of. [facility] Medical History (Updated 04/22/24 @ 16:06 by Aby Ortiz PA-C) GERD (gastroesophageal reflux disease) Palpitations Abdominal pain Anxiety Low TSH level Fatigue Difficulty swallowing Surgical History History of placement of ear tubes Hx of tonsillectomy Family History Mother Medical history unknown Father Medical history unknown Social History Housing: House Alcohol intake: current Alcohol intake frequency: holidays/special occasions only Patient Tobacco Use Status: Current everyday Tobacco user Years Smoked: pt stated quit 2yrs ago e-Cigarette/Vaping Use: Currently Using Second Hand Smoke Exposure: Yes Substance Use Type: Marijuana service: No Current occupational status: employed Cognitive needs: No Hearing needs: No Vision needs: Yes (glasses) Questionnaire Thrive Questionnaire Date Thrive assessed: 05/30/23 SHAAN-7 AMB Questionnaire SHAAN-7 Date SHAAN - 7 assessed: 05/30/23 Source: Developed by Drs. Lyndon Merchant, Sia Lind, Sachin Gurrola and colleagues, with an educational gulshan from [employer]. Review of Systems Const All systems reviewed & are unremarkable except as noted in HPI and below Physical exam (Primary Care) Tobacco/Smoking Status: Tobacco use Status Tobacco use date assessed 04/22/24 04/22/24 15:38 Patient Tobacco Use Status Current everyday Tobacco 04/22/24 15:38 Tobacco use type 03/28/24 16:18 e-Cigarette/Vaping Use Currently Using 04/22/24 15:38 Thrive Assessment: Date of Thrive Assessment Date Thrive assessed 05/30/23 04/22/24 15:38 Telehealth Telehealth Telehealth Platform: Telephone Location of provider rendering services: practice address Location of patient: address on file Patient Identification confirmed using: Name, : Yes Telehealth method: voice only Patient verbally consented to treatment: Yes Patient verbally consented to billing insurance company: Yes Patient informed of any privacy concerns related to visit: Yes Minutes spent on Phone/Video with Pt.: 15 Coding Level of Care Code Tele Est Pt Level 4 (11704) Complex EM visit Add On G2211 Diagnoses Abdominal pain R10.9 Palpitations R00.2 GERD (gastroesophageal reflux disease) K21.9 Assessment & Plan Assessment & Plan (1) Abdominal pain: Code(s): R10.9 - Unspecified abdominal pain Category: Medical Plan: Generalized abdominal pain may be related to GERD or anxiety. Will obtain outpatient labs which include CBC, chemistry, thyroid, UA, . Patient w ill be prescribed omeprazole 20 mg b.i.d.. Patient instructed to call us back if any new or worsening or persistent symptoms. Patient will go for her blood work at this time. (2) Palpitations: Code(s): R00.2 - Palpitations Category: Medical Plan: See above for plan. (3) GERD (gastroesophageal reflux disease): Code(s): K21.9 - Gastro-esophageal reflux disease without esophagitis Category: Medical Plan: see above for plan Plan See above for plan. Orders: Orders Lipid Panel Today R00.2 - Palpitations, R10.9 - Unspecified abdominal pain Vitamin B12 and Folate Today R00.2 - Palpitations, R10.9 - Unspecified abdominal pain Vitamin D 25-OH Total Today R00.2 - Palpitations, R10.9 - Unspecified abdominal pain Ur Preg Test Today R00.2 - Palpitations, R10.9 - Unspecified abdominal pain Complete Blood Count Auto Diff Today R00.2 - Palpitations, R10.9 - Unspecified abdominal pain Comprehensive Sherman. Panel Fast Today R00.2 - Palpitations, R10.9 - Unspecified abdominal pain Liver Panel Today R00.2 - Palpitations, R10.9 - Unspecified abdominal pain Magnesium Today R00.2 - Palpitations, R10.9 - Unspecified abdominal pain TSH reflex Free T4 Today R00.2 - Palpitations, R10.9 - Unspecified abdominal pain UA CC w/rflx Micro + Cult Today R00.2 - Palpitations, R10.9 - Unspecified abdominal pain Medications: New omeprazole 20 mg PO BID 60 caps 0RF gerd
== END 2024-04-22 16:39 | disposition home or self-care (01) ==
LOC: HO.HMCH 15:35
PROVIDERS: PCP Internal Medicine; Visit Provider Internal Medicine
DX: R10.9 Unspecified abdominal pain (principal); R00.2 Palpitations; K21.9 Gastro-esophageal reflux disease without esophagitis

== ENCOUNTER 2024-04-22 15:35 | Outpatient (REF) | payer OTHER, SELFPAY ==
[2024-04-22 16:37] LABS: MANUAL DIFF FLAG NO
[2024-04-22 16:48] LABS: Basophils Percent Auto 0.4 % (0-2); Eosinophils Percent Auto 0.4 % (0-4); Hematocrit 39.8 % (37.0-47.0); Hemoglobin 14.1 g/dl (12.0-16.0); Imm Gran Abs Auto 0.02 X10*3/uL (0.00-0.03); Imm Gran Pct Auto 0.2 % (0.0-0.4); Lymphocytes Absolute Auto 3.1 X10*3/uL (1.2-4.9); Lymphocytes Percent Auto 32.4 % (20-40); Mean Corpuscular HGB Conc 35.4 g/dl (31.0-35.0); Mean Corpuscular Volume 81.9 fL (80.0-98.0); Mean Platelet Volume 8.8 fL (9.4-12.3); Monocytes Absolute Auto 0.6 X10*3/uL (0.1-1.2); Monocytes Percent Auto 6.6 % (2-11); Neutrophils Absolute Auto 5.7 x10*3/uL (2.0-8.3); Platelet Count 371 X10*3/uL (160-400); Red Blood Count 4.86 X10*6/uL (4.20-5.50); Red Cell Distribution Width 12.6 % (11.0-16.0); White Blood Count 9.5 X10*3/uL (4.8-10.8)
[2024-04-22 17:02] LABS: Appearance Urine Cloudy; Color Urine Dark Yellow; Glucose Urine UA Negative (Negative); Leukocyte Esterase Urine Small (1+) (Negative); Nitrite Urine Negative (Negative); Specific Gravity - Urine >= 1.030 (1.005-1.025); UMIC TRIGGER UACC YES; Urine Blood Trace (Negative); Urine Ketones 40 mg/dL (Negative); Urine Protein Trace mg/dL (Neg-Trace)
[2024-04-22 17:04] LABS: Bacteria Urine Trace (None Seen); RBC Urine 0-2 /HPF (0-2); UACC Culture Trigger YES; UPreg QC Valid YES; Urine Pregnancy NEGATIVE (NEGATIVE)
[2024-04-22 17:26] LABS: Alanine Aminotransferase 26 U/L (0-31); Albumin Level 4.7 g/dL (3.5-5.0); Alkaline Phosphatase 56 U/L (39-117); Anion Gap 12 (12-20); Aspartate Amino Transferase 20 U/L (5-31); Bilirubin Direct 0.1 mg/dL (0.0-0.5); Bilirubin Total 0.5 mg/dL (0.0-1.0); Blood Urea Nitrogen 11 mg/dL (9-16); Calcium 9.6 mg/dL (8.4-10.2); Carbon Dioxide 24 mmol/L (22-29); Chloride 108 mmol/L (96-108); Cholesterol 235 mg/dL (<200); Estimated Glomerular Filt Rate > 60; Glucose Fasting 94 mg/dL (60-99); HDL Cholesterol 44 mg/dL (>40); LDL Cholesterol Calculated 161 mg/dL (<100); Magnesium 2.2 mg/dL (1.6-2.6); Potassium 3.6 mmol/L (3.3-5.1); Sodium 140 mmol/L (135-145); Total Protein 8.2 g/dL (6.5-8.0); Triglycerides 153 mg/dL (<150)
[2024-04-22 17:31] LABS: TSH reflex Free T4 0.52 uIU/mL (0.32-4.0); Vitamin D 25-OH Total 46.7 ng/mL (>30)
== END 2024-04-22 15:36 | disposition home or self-care (01) ==
LOC: HO.LAB 15:35
PROVIDERS: PCP Internal Medicine; Visit Provider Physician Assistant Medical
DX: R00.2 Palpitations (principal); R10.9 Unspecified abdominal pain
CPT/HCPCS: 36415; 80053; 80061; 80076; 81001; 81003; 81025; 82248; 82306; 83735; 84443; 85025; 87086

== ENCOUNTER 2024-04-24 15:44 | Outpatient (AMB) | payer OTHER, SELFPAY ==
[2024-04-24 15:49] VITALS: BP 122/64; PULSE 106; O2SAT 97; BMI 33.0
--- NOTE | 2024-04-24 15:49 | A.OFFPC_ITS ---
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 Accompanied by: Self / Same As Patient Allergies No Known Allergies Allergy (Verified 04/29/24 13:49) Medication List - Last Reconciled 04/29/24 by Bry Coelho MD desogestrel-ethinyl estradiol 0.15-0.03 mg (Apri) tabs PO pantoprazole 40 mg PO DAILY phenazopyridine (Pyridium) 200 mg PO TID 3 days sulfamethoxazole-trimethoprim 800-160 mg (Bactrim DS) 1 tab PO BID 5 days Tobacco use date assessed: 04/24/24 Dental Screening Dental Screen Date: 04/24/24 Did you have a dental visit in the last 12 months?: Yes Did you have a dental problem in the last 6 months where you did not have access to dental care?: No Was dental information given to patient?: Patient has dentist HPI Stomach pain HPI Details 23 yr old female presents to the office for a sick visit. She had a televisit recently. Symptoms of increased frequency of urination, hesitation and burning. No fever or chills. No back pain. No nausea or vomiting. [facility] Medical History (Updated 04/22/24 @ 16:06 by Aby Ortiz PA-C) GERD (gastroesophageal reflux disease) Palpitations Abdominal pain Anxiety Low TSH level Fatigue Difficulty swallowing Surgical History History of placement of ear tubes Hx of tonsillectomy Family History Mother Medical history unknown Father Medical history unknown Social History Housing: House Alcohol intake: current Alcohol intake frequency: holidays/special occasions only Patient Tobacco Use Status: Current everyday Tobacco user Years Smoked: pt stated quit 2yrs ago e-Cigarette/Vaping Use: Currently Using Second Hand Smoke Exposure: Yes Substance Use Type: Marijuana service: No Current occupational status: employed Cognitive needs: No Hearing needs: No Vision needs: Yes (glasses) Questionnaire PHQ-9 Over the last 2 weeks, how often have you been bothered by any of the following problems? 1. Little interest or pleasure in doing things: not at all 2. Feeling down, depressed, or hopeless: several days (currently on medication) 3. Trouble falling or staying asleep, or sleeping too much: not at all 4. Feeling tired or having little energy: not at all 5. Poor appetite or overeating: not at all 6. Feeling bad about yourself - or that you are a failure or have let yourself or your family down: not at all 7. Trouble concentrating on things, such as reading the newspaper or watching television: not at all 8. Moving or speaking so slowly that other people could have noticed. Or the opposite - being so fidgety or restless that you have been moving around a lot more than usual: not at all 9. Thoughts that you would be better off or of hurting yourself in some way: not at all Total score: 1 Source: Developed by Drs. Lyndon Merchant, Sia Lind, Sachin Gurrola and colleagues, with an educational gulshan from [employer]. Thrive Questionnaire Date Thrive assessed: 04/24/24 I am a: Patient What is your living situation today?: I have a steady place to live Within the past 12 months, did the food you bought not last and you didn't have the money to get more?: Never true Within the past 12 months, did you worry whether your food would run out before you got money to buy more?: Never true Do you have trouble paying for medicines?: No Do you have trouble getting transportation to medical appointments?: No Do you have trouble paying your heating and electricity bill?: No Do you have trouble taking care of your child, family member or friend?: No Do you have trouble with day-to-day activities such as bathing, preparing meals, shopping, managing finances, etc.?: No Are you currently unemployed and looking for a job?: No Are you interested in more education?: No Please select the resources that you would like help with: None Currently or been in a relationship where the following occur: No concerns reported THRIVE Score: 0 AUDIT C Alcohol Use Questionnaire (AUDIT-C) 1. How often do you have a drink containing alcohol?: Never Total Score: 0 SHAAN-7 AMB Questionnaire SHAAN-7 Date SHAAN - 7 assessed: 04/24/24 Feeling nervous, anxious, or on edge: 0 = Not at all Not being able to stop or control worryin = Not at all Worrying too much about different things: 0 = Not at all Trouble relaxin = Not at all Being so restless that it is hard to sit still: 0 = Not at all Becoming easily annoyed or irritable: 0 = Not at all Feeling afraid as if something awful might happen: 0 = Not at all Total SHAAN-7 score (0-4 normal; 5-9 mild; 10-14 moderate; 15-21 severe): 0 Source: Developed by Drs. Lyndon Merchant, Sia Lind, Sachin Gurrola and colleagues, with an educational gulshan from [employer]. Physical exam (Primary Care) Vital Signs: Last Vital Signs Pulse 106 H 04/24/24 15:49 BP 122/64 04/24/24 15:49 Pulse Ox 97 04/24/24 15:49 Oxygen Delivery Method Room Air 04/24/24 15:49 BMI result Body Mass Index 33.0 Tobacco/Smoking Status: Tobacco use Status Tobacco use date assessed 04/24/24 04/24/24 15:54 Patient Tobacco Use Status Current everyday Tobacco 04/24/24 15:54 Tobacco use type 03/28/24 16:18 e-Cigarette/Vaping Use Currently Using 04/24/24 15:54 PHQ-9: PHQ-9 Score PHQ-9: Total score 1 04/24/24 15:54 Thrive Assessment: Date of Thrive Assessment Date Thrive assessed 04/24/24 04/24/24 15:54 Currently or been in a relationship where the following occur: No concerns reported Const General: cooperative and healthy appearing Nutritional Appearance: well nourished Orientation/consciousness: patient oriented x3 Limitations: no limitations HENMT Head: Yes normal to inspection Eyes General: appearance normal, both eyes and all related structures Neck Neck: Yes normal visual inspection Chest Chest palpation & inspection: normal palpation of entire chest wall Resp Effort & Inspection: normal respiratory effort Back/Spine/Pelvis Other: Back: No CVA tenderness. No spinal tenderness. Neuro General: patient oriented x3 Coding Level of Care Code Est Pt Level 3 (67468) Complex EM visit Add On G2211 Diagnoses Urinary tract infection N39.0 Assessment & Plan Assessment & Plan (1) Urinary tract infection: Code(s): N39.0 - Urinary tract infection, site not specified Plan: Urinalysis revd. Antibiotics and pyridium called in Medications: New phenazopyridine (Pyridium) 200 mg PO TID 9 tabs 0RF 3 days sulfamethoxazole-trimethoprim 800-160 mg (Bactrim DS) 1 tab PO BID 10 tabs 0RF 5 days pantoprazole 40 mg PO DAILY 30 tabs 0RF Discontinued omeprazole Discontinued Reason: Doctor's Order 20 mg PO BID 60 caps 0RF gerd
== END 2024-04-24 16:11 | disposition home or self-care (01) ==
PROVIDERS: PCP Internal Medicine; Visit Provider Internal Medicine
DX: N39.0 Urinary tract infection, site not specified (principal)

== ENCOUNTER → 2024-04-24 15:44 | Outpatient (BNVA) | payer OTHER, SELFPAY | PROVIDERS: PCP Internal Medicine; Visit Provider Internal Medicine | DX: N39.0 Urinary tract infection, site not specified (principal) | CPT/HCPCS: 96127; 99212 ==

== ENCOUNTER 2024-05-18 15:17 | Emergency (ER) | payer OTHER, SELFPAY ==
[2024-05-18] VITALS (7 sets, daily range): BP systolic 108–155; BP diastolic 47–107; PULSE 99–115; RESP 11–19; TEMP 37.3–37.7; O2SAT 96–98; BMI 33.5
--- NOTE | ~2024-05-18 | CT_ITS ---
CLINICAL HISTORY: Fever, source unclear, some abdominal tenderness CT abdomen and pelvis with contrast Comparison: None Findings: No consolidation or effusion. Unremarkable gallbladder. No biliary ductal dilatation. The liver, spleen, pancreas, adrenal glands and kidneys are unremarkable. No hydronephrosis or hydroureter. No bowel obstruction, pneumoperitoneum, or pneumatosis. Appendix not identified. No pericecal inflammatory changes. Pelvic contents unremarkable. Abdominal aorta normal in size. No acute fracture. IMPRESSION: No acute findings. This document has been electronically signed by: Sakshi Malik MD on 05/18/2024 22:35:29
--- NOTE | ~2024-05-18 | XR_ITS ---
CLINICAL HISTORY: chills 2 view chest x-ray. Comparison: None Findings: Normal lung volumes. Lungs are clear. No pneumothorax or pleural effusion. Heart size normal. No passive venous congestion. No midline shift or tracheal deviation. No acute fracture. Impression: 1. No acute cardiopulmonary disease. This document has been electronically signed by: Robert Kelly MD on 05/18/2024 16:30:19
--- NOTE | 2024-05-18 15:26 | ED_ITS ---
HPI - General Adult General Chief complaint: General Medical Stated complaint: sinus infection/kidney infection Time Seen by Provider: 05/18/24 20:57 History of Present Illness ED Provider: allan WOLF narrative: The patient is a 23-year-old female who has been feeling unwell for almost 2 months. She had a variety of symptoms just after Thanksgiving when she had a sense of congestion and body pains and a variety of other symptoms. She says that she saw her primary care doctor who prescribed what I believe was Bactrim for a possible UTI at that time. She did not feel much better after taking the Bactrim and subsequently went to an urgent care center where she was told that they thought she might have a kidney infection and a sinus infection and that if they put her on Augmentin. She took a course of Augmentin without significant improvement and was later also put on a course of ciprofloxacin. She finished the ciprofloxacin about 2 weeks ago and was feeling somewhat better but not completely back to normal. Several days ago she again developed a sense of congestion and cough as well as low back pain an epigastric discomfort and bloating. She has had night sweats for the last couple of days. Last night her temperature was 101 degrees. She has had a mild sore throat. She has had a tonsillectomy. She has had no diarrhea. The patient is on oral contraceptive. That is her only regular medication. Related Data Home Medications ?Medication ?Instructions ?Recorded ?Confirmed desogestrel 0.15 mg-ethinyl tab PO 11/23/23 estradiol 0.03 mg tablet (Apri) Previous Rx's ?Medication ?Instructions ?Recorded pantoprazole 40 mg tablet,delayed 40 mg PO DAILY #30 tabs 04/24/24 release phenazopyridine 200 mg tablet 200 mg PO TID 3 days #9 tabs 04/24/24 (Pyridium) sulfamethoxazole 800 1 tab PO BID 5 days #10 tabs 04/24/24 mg-trimethoprim 160 mg tablet (Bactrim DS) cefpodoxime 200 mg tablet 200 mg PO BID #16 tabs 05/19/24 Allergies Allergy/AdvReac Type Severity Reaction Status Date / Time No Known Allergies Allergy Verified 05/18/24 15:26 Review of Systems 2 Review of Systems: Yes all other systems are reviewed and are negative PMFSH Past Medical History Medical History (Updated 05/19/24 @ 01:06 by Miguel Ángel De Guzman MD) GERD (gastroesophageal reflux disease) Palpitations Abdominal pain Anxiety Low TSH level Fatigue Difficulty swallowing Surgical History History of placement of ear tubes Hx of tonsillectomy Family History Family History Mother Medical history unknown Father Medical history unknown Social History Social History Housing: House Alcohol intake: current Alcohol intake frequency: holidays/special occasions only Patient Tobacco Use Status: Current everyday Tobacco user Years Smoked: pt stated quit 2yrs ago Smoked in Last 30 Days: No e-Cigarette/Vaping Use: Currently Using Second Hand Smoke Exposure: Yes Use of substances other than those prescribed or required for medical reasons: Yes Substance Use Type: Marijuana Advance Directives: No Advance Directives Information Provided: No Do you have a plan to hurt others: No Plan Patient : No service: No Current occupational status: employed Cognitive needs: No Hearing needs: No Vision needs: Yes (glasses) Physical Exam ED Vital Signs: Vital Signs - 24 hr 05/18/24 15:24 05/18/24 19:33 05/18/24 21:16 Temperature 99.3 F 99.9 F 99.4 F Pulse Rate 115 H 112 H 99 Respiratory Rate 19 18 11 L Blood Pressure 153/107 H 139/92 H 142/87 H Pulse Oximetry 98 96 97 Oxygen Delivery Method Room Air Room Air 05/18/24 22:17 05/18/24 22:55 05/18/24 23:11 Temperature 99.1 F Pulse Rate 99 104 H Respiratory Rate 16 Blood Pressure 108/47 L 155/84 H 130/82 Pulse Oximetry 97 Oxygen Delivery Method Room Air 05/18/24 23:53 05/19/24 01:18 05/19/24 02:09 Temperature 98.6 F 98.6 F Pulse Rate 94 94 Respiratory Rate 20 20 Blood Pressure 115/62 129/73 129/73 Pulse Oximetry 97 97 Oxygen Delivery Method Room Air Room Air BMI result Body Mass Index 33.5 Const Other: The patient is a well-developed 23-year-old female who looks as though she is ordinarily in good health. She looks mildly unwell but not obviously acutely ill. She does not seem in obvious discomfort or respiratory difficulty. HENMT Other: Face is symmetrical. Mucous membranes moist. Mild posterior Pharyngeal injection. No exudate. Tympanic membranes normal bilaterally. Eyes Other: Pupils are round equal, conjunctivae are clear, extraocular movements intact. Neck Other: neck is supple. No significant adenopathy. Resp Effort & Inspection: normal respiratory effort Auscultation: clear to auscultation bilaterally Cardio Rate: regular rate Heart sounds: S1 normal heart sound present, S2 normal heart sound present and Murmur heart sound present ( No murmur heard) GI Other: the abdomen is soft. There is some left lower quadrant tenderness. Back/Spine/Pelvis Other: The patient seemed to have some CVA percussion tenderness on The right side Skin General skin exam: no rashes or lesions noted Neuro Other: The patient is awake and alert with a normal mental status. She is nontoxic appearing. Cranial nerves are intact. Neck is supple. She moves her extremities normally and appropriately. She is neurologically intact. Extrem Other: No calf swelling or tenderness. No peripheral edema. Course Course Course Narrative: This is a Rapid Medical Examination (RME) performed by Abby Henderson PA-C in triage. Full HPI, ROS, assessment and treatment plan per primary provider in the Main ED. 23 yo female hx HTN, anxiety, GERD, ADHD, depression here for eval of of multiple concerns. reports bilateral low back pain, epigastric pain, abdominal bloating after eating small amounts, weight fluctuations, decreased appetite over last 2 weeks. also endorses sore throat since yesterday. temp of 101 last night which has resolved. hx of low TSH levels however has never been placed on medication for this. Plan: labs, UA, cxr, viral/strep swabs 1930 -- WBC 21. tachycardic. low grade temp. concern for infection - patient meets sepsis criteria. transmitter engineer in charge aware, patient to be brought back to main ED bed. lactic and blood cultures added. Medications Administered Discontinued Medications Generic Name Dose Route Start Last Admin Trade Name Freq PRN Reason Stop Dose Admin Ceftriaxone Sodium 1 gm 05/18/24 23:04 05/18/24 23:23 Ceftriaxone Sodium 1 Gm Vial IVPUSH 05/18/24 23:05 1 gm ONCE ONE Administration Sodium Chloride 1,000 mls @ 999 mls/hr 05/18/24 21:45 05/18/24 23:18 Ns IV 05/18/24 22:45 Infused .Q1H1M TOMMY Infusion Sodium Chloride 1,000 mls @ 999 mls/hr 05/18/24 23:15 05/19/24 01:00 Ns IV 05/19/24 00:15 Infused .Q1H1M TOMMY Infusion Iohexol 85 ml 05/18/24 21:52 05/18/24 21:52 Iohexol 350 Mg/Ml 100 Ml Infus..Btl IV 05/18/24 21:53 85 ml ONCE ONE Administration Ketorolac Tromethamine 10 mg 05/18/24 23:04 05/18/24 23:23 Ketorolac Tromethamine 15 Mg/Ml Vial IVPUSH 05/18/24 23:05 10 mg ONCE ONE Administration Medical Decision Making Medical Decision Making [facility] Narrative: The patient is a 23-year-old who was ordinarily healthy. She has been having problems with recurrent symptoms of body aches and fevers for a few months. She denies any tick exposures. She has been on Bactrim, Augmentin, and ciprofloxacin. She felt somewhat better after the course of ciprofloxacin but has started to feel worse again with a fever and night sweats. She has body pains that seem mostly in her lower back and in her abdomen. She has no urinary symptoms. The patient's workup [place] [address] with a left shift. CRP is 6.S a viral swab was negative for COVID, influenza, and RSV. Rapid strep is negative. Chest x-ray is negative. Urinalysis is abnormal but the patient has not no symptoms of dysuria, urgency, or frequency. CT scan of the abdomen and pelvis showed no explanation for the patient's symptoms are fevers. The patient is on control and was persistently tachycardic so a D-dimer was sent. This was normal. The patient does not describe any unusual or exotic travel or exposures. she has been persistently tachycardic but her overall clinical appearance does not suggest severe illness. They do not see an indication for hospitalization today. Given the high white count and moderately elevated CRP the patient will be treated empirically with antibiotics although no clear source for her infection is apparent. She will be placed on a course of cefpodoxime. She was given a dose of ceftriaxone in the emergency room as well as IV fluids which ultimately helped her tachycardia somewhat. She should follow up with her PCP. Blood cultures are pending. Lab Data 05/18/24 15:46 05/18/24 15:46 Labs: Lab Results 05/18/24 05/18/24 05/19/24 Range/Units 15:46 17:38 00:29 WBC 21.0 H (4.8-10.8) X10*3/uL RBC 5.01 (4.20-5.50) X10*6/uL Hgb 14.2 (12.0-16.0) g/dl Hct 41.3 (37.0-47.0) % MCV 82.4 (80.0-98.0) fL MCH 28.3 (27.0-33.0) pg MCHC 34.4 (31.0-35.0) g/dl RDW 12.3 (11.0-16.0) % Plt Count 311 (160-400) X10*3/uL MPV 9.5 (9.4-12.3) fL Immature Gran % (Auto) 0.4 (0.0-0.4) % Neut % (Auto) 82.2 H (45-73) % Lymph % (Auto) 12.0 L (20-40) % [place] % (Auto) 5.0 (2-11) % Eos % (Auto) 0.1 (0-4) % Baso % (Auto) 0.3 (0-2) % Lymph # (Auto) 2.5 (1.2-4.9) X10*3/uL [place] # (Auto) 1.1 (0.1-1.2) X10*3/uL Eos # (Auto) 0.0 (0.0-0.4) X10*3/uL Baso # (Auto) 0.1 (0.0-0.2) X10*3/uL Abs Immat Gran (auto) 0.09 H (0.00-0.03) X10*3/uL Absolute Neuts (auto) 17.3 H (2.0-8.3) x10*3/uL Absolute Nucleated RBC 0.000 (0.0-0.012) X10*3/uL Nucleated RBC % (auto) 0.0 (0.0-0.2) /100WBC D-Dimer High Sensitivty < 150 NG/ML Sodium 138 (135-145) mmol/L Potassium 3.8 (3.3-5.1) mmol/L Chloride 105 (96-108) mmol/L Carbon Dioxide 23 (22-29) mmol/L Anion Gap 14 (12-20) BUN 10 (9-16) mg/dL Creatinine 0.71 (0.5-1.4) mg/dL Estim Creat Clear Calc 133.8 Estimated GFR > 60 Random Glucose 97 (60-115) mg/dL Lactic Acid 1.2 (0.5-2.0) mmol/L Calcium 9.9 (8.4-10.2) mg/dL Magnesium 2.0 (1.6-2.6) mg/dL Total Bilirubin 0.4 (0.0-1.0) mg/dL AST 21 (5-31) U/L ALT 32 H (0-31) U/L Alkaline Phosphatase 62 (39-117) U/L C-Reactive Protein 6.04 H (< or = 0.50) mg/dL Total Protein 8.5 H (6.5-8.0) g/dL Albumin 4.5 (3.5-5.0) g/dL Lipase 11 (8-78) U/L TSH 0.55 (0.32-4.0) uIU/mL Urine Color Dark Yellow Urine Appearance Cloudy Urine pH 6.0 (5.0-9.0) Ur Specific [place] >= 1.030 H (1.005-1.025) Urine Protein 30 (1+) H (Neg-Trace) mg/dL Urine Glucose (UA) Negative (Negative) mg/dL Urine Ketones Negative (Negative) mg/dL Urine Blood Small (1+) H (Negative) Urine Nitrite Negative (Negative) Ur Leukocyte Esterase Moderate (2+) H (Negative) Urine RBC 0-2 (0-2) /HPF Urine WBC 11-20 H (0-5) /HPF Ur Squamous Epith Cells 3-5 (0-2) /HPF Urine Bacteria 4+ (None Seen) Hyaline Casts 0-2 (0-2) /LPF Urine Test NEGATIVE (NEGATIVE) Respiratory Panel Drew Adenovirus (Rapid PCR) (Not Detect.) B.pert (TEM-PCR) (Not Detect.) B.parapertussis DNA PCR (Not Detect.) C. pneumoniae DNA (PCR) (Not Detect.) Coronavirus OC43 (PCR) (Not Detect.) Coronavirus HKU1 (PCR) (Not Detect.) Coronavirus 229E (PCR) (Not Detect.) Coronavirus NL63 (PCR) (Not Detect.) Human Metapneumovir PCR (Not Detect.) Influenza A (RT-PCR) (Not Detect.) Influenza Type A (PCR) NEGATIVE (Negative) Influenza B (RT-PCR) (Not Detect.) Influenza Type B (PCR) NEGATIVE (Negative) M. pneumoniae (PCR) (Not Detect.) Parainfluenza 1 (PCR) (Not Detect.) Parainfluenza 2 (PCR) (Not Detect.) Parainfluenza 3 (PCR) (Not Detect.) Parainfluenza 4 (PCR) (Not Detect.) RSV (PCR) (Not Detect.) RSV RNA Qual (PCR) NEGATIVE (Negative) Entero/Rhino (PCR) (Not Detect.) SARS-CoV-2 RNA (RT-PCR) NEGATIVE (Negative) S. pyogenes GrpA FREDO Negative (Negative) 05/19/24 Range/Units 01:28 WBC (4.8-10.8) X10*3/uL RBC (4.20-5.50) X10*6/uL Hgb (12.0-16.0) g/dl Hct (37.0-47.0) % MCV (80.0-98.0) fL MCH (27.0-33.0) pg MCHC (31.0-35.0) g/dl RDW (11.0-16.0) % Plt Count (160-400) X10*3/uL MPV (9.4-12.3) fL Immature Gran % (Auto) (0.0-0.4) % Neut % (Auto) (45-73) % Lymph % (Auto) (20-40) % [place] % (Auto) (2-11) % Eos % (Auto) (0-4) % Baso % (Auto) (0-2) % Lymph # (Auto) (1.2-4.9) X10*3/uL [place] # (Auto) (0.1-1.2) X10*3/uL Eos # (Auto) (0.0-0.4) X10*3/uL Baso # (Auto) (0.0-0.2) X10*3/uL Abs Immat Gran (auto) (0.00-0.03) X10*3/uL Absolute Neuts (auto) (2.0-8.3) x10*3/uL Absolute Nucleated RBC (0.0-0.012) X10*3/uL Nucleated RBC % (auto) (0.0-0.2) /100WBC D-Dimer High Sensitivty NG/ML Sodium (135-145) mmol/L Potassium (3.3-5.1) mmol/L Chloride (96-108) mmol/L Carbon Dioxide (22-29) mmol/L Anion Gap (12-20) BUN (9-16) mg/dL Creatinine (0.5-1.4) mg/dL Estim Creat Clear Calc Estimated GFR Random Glucose (60-115) mg/dL Lactic Acid (0.5-2.0) mmol/L Calcium (8.4-10.2) mg/dL Magnesium (1.6-2.6) mg/dL Total Bilirubin (0.0-1.0) mg/dL AST (5-31) U/L ALT (0-31) U/L Alkaline Phosphatase (39-117) U/L C-Reactive Protein (< or = 0.50) mg/dL Total Protein (6.5-8.0) g/dL Albumin (3.5-5.0) g/dL Lipase (8-78) U/L TSH (0.32-4.0) uIU/mL Urine Color Urine Appearance Urine pH (5.0-9.0) Ur Specific [place] (1.005-1.025) Urine Protein (Neg-Trace) mg/dL Urine Glucose (UA) (Negative) mg/dL Urine Ketones (Negative) mg/dL Urine Blood (Negative) Urine Nitrite (Negative) Ur Leukocyte Esterase (Negative) Urine RBC (0-2) /HPF Urine WBC (0-5) /HPF Ur Squamous Epith Cells (0-2) /HPF Urine Bacteria (None Seen) Hyaline Casts (0-2) /LPF Urine Test (NEGATIVE) Respiratory Panel Drew See Note Adenovirus (Rapid PCR) Not Detected (Not Detect.) B.pert (TEM-PCR) Not Detected (Not Detect.) B.parapertussis DNA PCR Not Detected (Not Detect.) C. pneumoniae DNA (PCR) Not Detected (Not Detect.) Coronavirus OC43 (PCR) Not Detected (Not Detect.) Coronavirus HKU1 (PCR) Not Detected (Not Detect.) Coronavirus 229E (PCR) Not Detected (Not Detect.) Coronavirus NL63 (PCR) Not Detected (Not Detect.) Human Metapneumovir PCR Not Detected (Not Detect.) Influenza A (RT-PCR) Not Detected (Not Detect.) Influenza Type A (PCR) (Negative) Influenza B (RT-PCR) Not Detected (Not Detect.) Influenza Type B (PCR) (Negative) M. pneumoniae (PCR) Not Detected (Not Detect.) Parainfluenza 1 (PCR) Not Detected (Not Detect.) Parainfluenza 2 (PCR) Not Detected (Not Detect.) Parainfluenza 3 (PCR) Not Detected (Not Detect.) Parainfluenza 4 (PCR) Not Detected (Not Detect.) RSV (PCR) Not Detected (Not Detect.) RSV RNA Qual (PCR) (Negative) Entero/Rhino (PCR) Not Detected (Not Detect.) SARS-CoV-2 RNA (RT-PCR) Not Detected (Negative) S. pyogenes GrpA FREDO (Negative) Discharge Plan Discharge Clinical Impression: Fever, Abdominal pain, Leukocytosis, Back pain, Night sweats Patient Disposition: Home, Self-Care Additional Instructions: Your testing today showed that you had an elevated white blood count. However there is no clear source of your fevers. You have tested negative for COVID, the flu, and RSV. You also tested negative for strep throat. Your chest x-ray did not show a pneumonia. Your urinalysis is somewhat abnormal but since you have no symptoms of a UTI I do not think we can attribute your symptoms to a urinary tract infection. Since you were having a persistent elevated heart rate we checked a blood test to make sure you did not have a blood clot in your lungs. This test was normal, ruling out a blood clot. On the whole it is not clear what is causing your symptoms. I have prescribed another course of antibiotics, amoxicillin/clavulanate (also known as Augmentin). Please take this 2 times a day as prescribed. Drink lot of fluids. We sent another nasal swab to check for additional possible viruses. Follow up soon with your regular primary care doctor. Return to the emergency room if worse. Prescriptions: New cefpodoxime 200 mg tablet 200 mg PO BID Qty: 16 0RF Rx Instructions: must administer with a meal/food No Action desogestrel-ethinyl estradiol [Apri] 0.15-0.03 mg tablet PO sulfamethoxazole-trimethoprim [Bactrim DS] 800-160 mg tablet 1 tab PO BID 5 Days Qty: 10 0RF phenazopyridine [Pyridium] 200 mg tablet 200 mg PO TID 3 Days Qty: 9 0RF pantoprazole 40 mg tablet,delayed release (DR/EC) 40 mg PO DAILY Qty: 30 0RF Referrals: Bry Coelho MD [Primary Care Provider] - (fevers) Interventions: ED Discharge Assessment Last Done: 05/19/24 02:09 Discharge Date/Time: 05/19/24 02:11 Print Language: Cook Islander
[2024-05-18 15:55] LABS: MANUAL DIFF FLAG NO
[2024-05-18 16:11] LABS: IDNOW Serial# 58CA691E; Strep A Nucleic Acid Negative (Negative)
[2024-05-18 16:24] LABS: Basophils Absolute Auto 0.1 X10*3/uL (0.0-0.2); Basophils Percent Auto 0.3 % (0-2); Eosinophils Percent Auto 0.1 % (0-4); Hematocrit 41.3 % (37.0-47.0); Hemoglobin 14.2 g/dl (12.0-16.0); Imm Gran Abs Auto 0.09 X10*3/uL (0.00-0.03); Imm Gran Pct Auto 0.4 % (0.0-0.4); Lymphocytes Absolute Auto 2.5 X10*3/uL (1.2-4.9); Mean Corpuscular HGB Conc 34.4 g/dl (31.0-35.0); Mean Corpuscular Hemoglobin 28.3 pg (27.0-33.0); Mean Corpuscular Volume 82.4 fL (80.0-98.0); Mean Platelet Volume 9.5 fL (9.4-12.3); Monocytes Absolute Auto 1.1 X10*3/uL (0.1-1.2); Neutrophils Absolute Auto 17.3 x10*3/uL (2.0-8.3); Neutrophils Percent Auto 82.2 % (45-73); Platelet Count 311 X10*3/uL (160-400); Red Blood Count 5.01 X10*6/uL (4.20-5.50); Red Cell Distribution Width 12.3 % (11.0-16.0)
[2024-05-18 16:29] LABS: Appearance Urine Cloudy; Color Urine Dark Yellow; Glucose Urine UA Negative (Negative); Leukocyte Esterase Urine Moderate (2+) (Negative); Nitrite Urine Negative (Negative); Specific Gravity - Urine >= 1.030 (1.005-1.025); UMIC TRIGGER UACC YES; Urine Blood Small (1+) (Negative); Urine Ketones Negative (Negative); Urine Protein 30 (1+) mg/dL (Neg-Trace)
[2024-05-18 16:31] LABS: Alanine Aminotransferase 32 U/L (0-31); Albumin Level 4.5 g/dL (3.5-5.0); Anion Gap 14 (12-20); Aspartate Amino Transferase 21 U/L (5-31); Bilirubin Total 0.4 mg/dL (0.0-1.0); Blood Urea Nitrogen 10 mg/dL (9-16); Calcium 9.9 mg/dL (8.4-10.2); Carbon Dioxide 23 mmol/L (22-29); Chloride 105 mmol/L (96-108); Creatinine Clr Calc Pharmacy 133.8; Estimated Glomerular Filt Rate > 60; Glucose Random 97 mg/dL (60-115); Lipase 11 U/L (8-78); Potassium 3.8 mmol/L (3.3-5.1); Sodium 138 mmol/L (135-145); Total Protein 8.5 g/dL (6.5-8.0)
[2024-05-18 16:35] LABS: Influenza A PCR NEGATIVE (Negative); Influenza B PCR NEGATIVE (Negative); Resp Syncy Virus RNA Qual PCR NEGATIVE (Negative); SARS COV2 PCR INHOUSE NEGATIVE (Negative)
[2024-05-18 16:37] LABS: Alkaline Phosphatase 62 U/L (39-117)
[2024-05-18 16:41] LABS: TSH reflex Free T4 0.55 uIU/mL (0.32-4.0)
[2024-05-18 16:50] LABS: UPreg QC Valid YES; Urine Pregnancy NEGATIVE (NEGATIVE)
[2024-05-18 17:02] LABS: Bacteria Urine 4+ (None Seen); Hyaline Casts Urine 0-2 /LPF (0-2); RBC Urine 0-2 /HPF (0-2); UACC Culture Trigger YES
--- NOTE | 2024-05-18 17:20 | ECG_ITS ---
Test Reason : TACHYCARDIA Blood Pressure : */* mmHG Vent. Rate : 109 BPM Atrial Rate : 109 BPM P-R Int : 130 ms QRS Dur : 86 ms QT Int : 316 ms P-R-T Axes : 25 18 10 degrees QTcB Int : 425 ms Sinus tachycardia Otherwise normal ECG No previous ECGs available Referred By: Darcie Henderson Electronically Signed By: LOS ARREOLA
[2024-05-18 18:18] LABS: Lactic Acid 1.2 mmol/L (0.5-2.0)
--- NOTE | 2024-05-18 19:35 | MHC.EDTECH ---
Patient brought into triage area,second set of blood cultures obatiend and sent to lab,vitals taken, BEVERLEY RN/triage provider aware
[2024-05-18 21:24] LABS: C Reactive Protein 6.04 mg/dL (< or = 0.50)
--- NOTE | 2024-05-18 21:29 | PC.NURSE ---
this rn assumed care of pt from waiting rom @ 2104. 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
[2024-05-18] MEDS: iohexoL 350 MG/ML 100 ML INFUS..BTL 85 ML IV (21:52)
[2024-05-18] MEDS: 0.9 % Sodium Chloride 1,000 ML 999 ML IV ×2 (21:57→23:24)
--- NOTE | 2024-05-18 22:18 | MHC.EDTECH ---
pt gave permission for I to access pt chart and to do pt care although we knew each other from High School
--- NOTE | 2024-05-18 22:40 | PC.NURSE ---
pt verbalized nausea asking for something to aleiviate that this rn made md aware no new orders
[2024-05-18] MEDS: Ketorolac Tromethamine 15 MG/ML VIAL 10 MG IVPUSH (23:23)
[2024-05-18] MEDS: cefTRIAXone sodium 1 GM VIAL IVPUSH (23:23)
[2024-05-19 00:47] LABS: D Dimer High Sensitivity < 150 NG/ML
[2024-05-19 01:18] VITALS: BP 129/73; PULSE 94; RESP 20; TEMP 37; O2SAT 97
[2024-05-19 02:09] VITALS: BP 129/73; PULSE 94; RESP 20; TEMP 37; O2SAT 97
[2024-05-19 08:39] LABS: Adenovirus PCR Not Detected (Not Detect.); Bordetella parapertussis PCR Not Detected (Not Detect.); Bordetella pertussis PCR Not Detected (Not Detect.); Chlamydia pneumoniae PCR Not Detected (Not Detect.); Coronavirus 229E PCR Not Detected (Not Detect.); Coronavirus HKU1 PCR Not Detected (Not Detect.); Coronavirus NL63 PCR Not Detected (Not Detect.); Coronavirus OC43 PCR Not Detected (Not Detect.); Human metapneumovirus PCR Not Detected (Not Detect.); Influenza A PCR Not Detected (Not Detect.); Influenza B PCR Not Detected (Not Detect.); Mycoplasma pneumoniae PCR Not Detected (Not Detect.); Parainfluenza 1 PCR Not Detected (Not Detect.); Parainfluenza 2 PCR Not Detected (Not Detect.); Parainfluenza 3 PCR Not Detected (Not Detect.); Parainfluenza 4 PCR Not Detected (Not Detect.); RSV PCR Not Detected (Not Detect.); Rhino/Enterovirus PCR Not Detected (Not Detect.)
[2024-05-19 08:41] LABS: SARS-CoV-2 PCR Not Detected (Not Detect.)
== END 2024-05-19 02:11 | disposition home or self-care (01) ==
PROVIDERS: Physician Assistant Medical; Emergency Provider Emergency Medicine; PCP Internal Medicine
DX: R50.9 Fever, unspecified (principal); R10.13 Epigastric pain; D72.829 Elevated white blood cell count, unspecified; M54.50 Low back pain, unspecified; R61 Generalized hyperhidrosis; J02.9 Acute pharyngitis, unspecified; R05.9 Cough, unspecified; Z03.818 Encounter for observation for suspected exposure to other biological agents ruled out
CPT/HCPCS: 0241U; 36415; 71046; 74177; 80053; 81001; 81003; 81025; 83605; 83690; 83735; 84443; 85025; 85379; 86140; 87040; 87086; 87633; 87651; 93005; 96361; 96374; 96375; 99285; J0696; J1885; Q9967

== ENCOUNTER → 2024-05-18 15:27 | Outpatient (BNV) | payer OTHER, SELFPAY | PROVIDERS: PCP Internal Medicine; Visit Provider Radiology Diagnostic Radiology | DX: R10.819 Abdominal tenderness, unspecified site (principal); R50.9 Fever, unspecified | CPT/HCPCS: 71046; 74177 ==

== ENCOUNTER → 2024-05-18 17:20 | Outpatient (BNV) | payer OTHER, SELFPAY | PROVIDERS: Emergency Provider Emergency Medicine; PCP Internal Medicine; Visit Provider Internal Medicine | DX: R00.0 Tachycardia, unspecified (principal) | CPT/HCPCS: 93010 ==

== ENCOUNTER 2024-06-04 11:34 | Outpatient (REF) | payer OTHER, SELFPAY ==
[2024-06-04 12:12] LABS: Hematocrit 40.4 % (37.0-47.0); Mean Corpuscular HGB Conc 34.7 g/dl (31.0-35.0); Mean Corpuscular Hemoglobin 28.8 pg (27.0-33.0); Mean Corpuscular Volume 83.1 fL (80.0-98.0); Mean Platelet Volume 9.4 fL (9.4-12.3); Platelet Count 328 X10*3/uL (160-400); Red Blood Count 4.86 X10*6/uL (4.20-5.50); Red Cell Distribution Width 11.9 % (11.0-16.0); White Blood Count 9.9 X10*3/uL (4.8-10.8)
[2024-06-04 12:16] LABS: Appearance Urine Clear; Color Urine Yellow; Glucose Urine UA Negative (Negative); Leukocyte Esterase Urine Negative (Negative); Nitrite Urine Negative (Negative); Urine Blood Negative (Negative); Urine Ketones Negative (Negative); Urine Protein Negative (Neg-Trace)
--- OUTSIDE RECORDS SUMMARY | 2024-06-04 12:49 | XMS_ITS | Encounter Summary ---
Author Organization [facility] Address [address] [place], [place] [id number] Phone Care Team Providers Care Ramp Attendant Name Role Phone Becca Anne MD Primary Care Provider [phone] Encounter Details Date Type Department Care Team ([facility] st Contact Info) Description 12/14/2016 Conversion Encounter [facility] - [address], [address] [place] [address] Paty Pickens MD [address] [place] [id number] Social History Tobacco Use Types Packs/Day Years Used Date Smoking Tobacco: Never Assessed Comments Unknown Sex and Gender Information Value Date Recorded Sex Assigned at Not on file Legal Sex Female 9:34 AM EST Gender Identity Not on file Sexual Orientation Not on file documented as of this encounter Plan of Treatment Not on file documented as of this encounter Visit Diagnoses Not on filedocumented in this encounter Care Teams Ramp Attendant Relationship Specialty Start Date End Date Becca Anne MD [address] [facility] [address] [place] [address] PCP - General Pediatrics 02/24/23 12/27/23 documented as of this encounter
--- OUTSIDE RECORDS SUMMARY | 2024-06-04 12:49 | XMS_ITS | Clinical Summary ---
Author Organization [facility] Address [address] [place] [address] Phone Care Team Providers Care Pottery Striper Name Role Phone Bry Coelho MD Primary Care Provider [phone] Social History Tobacco Use Types Packs/Day Years Used Date Smoking Tobacco: Never Assessed Sex and Gender Information Value Date Recorded Sex Assigned at Not on file Gender Identity Not on file Sexual Orientation Not on file Obstetrics History Last Filed Vital Signs Vital Sign Reading Time Taken Comments Blood Pressure 120/80 05/23/2023 12:41 PM EST Pulse 84 05/23/2023 12:41 PM EST Temperature - - Respiratory Rate - - Oxygen Saturation - - Inhaled Oxygen Concentration - - Weight 81.6 kg (180 lb) 01/30/2024 1:02 PM EDT Height 165.1 cm (5' 5 ) 01/30/2024 1:02 PM EDT Body Mass Index 29.95 01/30/2024 1:02 PM EDT Plan of Treatment Upcoming Encounters Date Type Department Care Team (Latest Contact Info) Description 07/10/2024 8:30 AM EST Hospital Encounter [facility] [place] [address] [place] [phone] Reina Pham MD [address] [phone] 07/10/2024 8:30 AM EST - 07/10/2024 11:[address] [facility] [address] [place] [phone] Reina Pham MD [address] [phone] RIGHT WRIST ARTHROSCOPY W/REMOVAL OF DORSAL SCAPHOLUNATE GANGLION [12923 (CPT??)] Scheduled Procedures Name Priority Associated Diagnoses Date/Ti me ARTHROSCOPY WRIST Ganglion, right wrist 07/10/2024 8:30 AM EST Health Maintenance Due Date Last Done Comments Gonorrhea/Chlamydia Screening 2001 HPV Vaccines (1 - 3-dose series) 2016 DTaP,Tdap,and Td Vaccines (1 - Tdap) 2020 Hepatitis B Vaccines (1 of 3 - 19+ 3-dose series) 2020 Cervical Cancer Screening: P ap Smear 2022 Depression Screening 12/01/2023 HIV Screening 12/01/2023 Hepatitis C Screening 12/01/2023 Social Influencers of Health Screening 12/01/2023 COVID-19 Vaccine ( - 2023-2 5 season) 2024 Influenza Vaccine (#1) 2024 HIB Vaccines Aged Out No longer eligi ble based on patient's age to complete this topic Hepatitis A Vaccines Aged Out No long er eligible based on patient's age to complete this topic IPV Vaccines Aged Out No longer eligi ble based on patient's age to complete this topic MMR Vaccines Aged Out No longer eligi ble based on patient's age to complete this topic Meningococcal ACWY Vaccine Aged Out N o longer eligible based on patient's age to complete this topic Pneumococcal Vaccine: Pediat rics (0 to 5 Years) and At-Risk Patients (6 to 64 Years) Aged Out No longer eligible b ased on patient's age to complete this topic RSV Immunization Patients Un nichelle 20 months Aged Out No longer eligible b ased on patient's age to complete this topic Varicella Vaccines Aged Out No longer eligible based on patient's age to complete this topic Care Teams Pottery Striper Relationship Specialty Start Date End Date Bry Coelho MD [address] [place] [address] PCP - General 01/30/24
--- OUTSIDE RECORDS SUMMARY | 2024-06-04 12:49 | XMS_ITS | Clinical Summary ---
Author Organization [facility] Address [address] [place] [id number] Phone Care Team Providers Care Derrick Barge Operator Name Role Phone Unavailable Primary Care Provider Unavailabl e Allergies No known active allergies Medications Albuterol Sulfate (PROAIR RESPICLICK) 108 (90 Base) MCG/ACT aerosol powderIndications: Cough Inhale 2 puffs every 4 (four) hours as needed (wheezing or cough) for up to 1 day. 1 each 0 Active beclomethasone (QVAR) 40 MCG/ACT inhalerIndications :Cough Inhale 1 puff 2 (two) times a day. Rinse mouth with water after use, do not swallow. 1 Units 5 0 Active amphetamine-dextro amphetamine XR (Adderall XR) 10 MG 24 hr capsuleIndications :ADHD (attention deficit hyperactivity disorder), inattentive type Take 1 capsule (10 mg total) by mouth every morning. 30 capsule 0 Active sertraline (Zoloft) 50 MG tabletIndications: Anxiety Take 1.5 tablets (75 mg total) by mouth daily. 45 tablet 2 0 Active hydrOXYzine 10 MG tabletIndications: Anxiety Take 1 tablet (10 mg total) by mouth 3 (three) times a day as needed for itching. 90 tablet 0 Active Aviane 0.1-20 MG-MCG per tabletIndications: Dysmenorrhea TAKE 1 TABLET BY MOUTH EVERY DAY 28 tablet 0 Active Active Problems Problem Noted Date Diagnosed Date Mild intermittent asthma without complication Overview (06/10/2019): Using preventive and albuterol PRN. Triggers: smoking, illness. Responded well May 2019. History of exposure to toxins via inhalation Overview (07/10/2019): Per mom, patient has a history of vaping. 2018 patient told mom she stopped, but mom found evidence of vaping supplies. Just sent as an FYI. 2020: no vaping anymore, on nicotine patches to stop smoking. Assessment & Plan (03/08/2019 2:49 PM EDT): Refer to pulmonology. Anxiety 12/12/2018 Overview (10/02/2019): Some tendency over time. Became more of an issue during school year. Talked with guidance and school counselors, started being more open with family about it summer 2018. Trial sertraline, with some effect at 50mg dose. 01/21/19: up to 75mg, seen by IB; reports reg MJ edible use as she feels more focused (it sounds like more calm and less anxiety) -- reviewed trying to get better control of anxiety. She agrees. Incr to 100mg. Report from mom was that Geena's behavior deteriorated on 100mg. Geena stopped taking med. Later she reports it helped, but on discussion not clear. Change to prozac. Took once and had bad day. Willing to try again. 2020: wants to go back on sertraline, really didn't like prozac. Attempted restart but patient couldn't take it every morning on time - discussed and she will try at night, does not want to change meds. Worked up to 50mg. 2020: failed sertraline (x 2 prolonged ramps) and prozac. To psych - ?mood disorder Assessment & Plan (08/14/2019 4:32 PM EDT): She remembers being on the 75mg and that it was ok. Will try going up to 75mg if things haven't improved in 2 weeks. OK to use the hydroxyzine. Assessment & Plan (07/10/2019 2:24 PM EST): Will try taking sertraline at night with OCP; also gave hydroxyzine PRN rx to try for when she is attempting to make a change and gets anxious. Recheck 4 weeks. Assessment & Plan (03/08/2019 3:05 PM EDT): Increase to 100mg. Recheck 3 weeks Assessment & Plan (01/21/2019 4:54 PM EDT): Will increase to 75mg. Encouraged IBH to work on skills for handling anxiety. Assessment & Plan (01/02/2019 4:57 PM EDT): Continue with 50mg dose for 2 more weeks. If not continuing to improve by then will increase dose to 75mg. Assessment & Plan (12/19/2018 4:31 PM EDT): Since you aren't having any trouble with the medication, raise the dose to 1 tablet daily (50mg) Dysmenorrhea 06/01/2016 Overview (02/07/2018): On OCP Assessment & Plan (07/10/2019 2:26 PM EST): Talk to WIRE SPRING RELAY ADJUSTER about starting Implanon. ADHD (attention deficit hype ractivity disorder), inattentive type 05/11/2016 Overview (05/17/2019): Apr 2016-May 2016: Exec function testing done at school and reviewed (+), [place]ts from parents and teachers (+), clinical interview with Ching and (grand)mother (+). Some anxiety as well. Reasonable to trial med. Provided letter for 504 accomodations. Will look into exec function coaching and would plan on neuropsych testing in the future to confirm or find alternative if not responsive to meds. Jun 2016: reports benefit from Adderall XR 10mg, got irritable on 15mg, so back to 10mg. September 2016: teacher Vand + for inattention, parent1 -, self -; parent2 + -- mixed response; cont on Adderall XR 10mg, not on weekends. Wears off too early in the afternoon. Discussed adding smaller afternoon dose to see if that will help since XR 15 had side effects. May 2019: no on Adderall XR for a while; lots of social disruption, not living at home regularly. Advised no meds unless family involved or taking it at school. Although would consider Wellbutrin after talking with psych. Assessment & Plan (02/07/2018 2:57 PM EDT): Cont Adderall XR 10mg. Try XR5mg at 3pm and let me know if that affects sleep Assessment & Plan (05/03/2017 11:46 AM EST): Will not refill today. Call when needed and will fill. Recheck in 3 mos Assessment & Plan (02/01/2017 2:06 PM EDT): No refills needed today. Elevated BP without diagnosis of hypertension Overview (07/10/2019): Intermittent. PK referred in 2010 but no notes. Jan 2016 - BP is normal; Jan 2017 - normal. 119/Feb. 2020: 128/81 today, will monitor. Assessment & Plan (02/01/2017 2:05 PM EDT): 2017: normal Acquired flat foot 07/31/2015 Overview (02/01/2017): Followed by Dr. Trujillo. Jan 2016 - not wearingg any orthotics Resolved Problems Problem Noted Date Diagnosed Date Resolved Date Acute suppurative otitis med ia of left ear with spontaneous rupture of ear drum 08/10/201811/2018 Overview (08/10/2018): Seen at [facility] ED Concussion with no loss of consciousness 06/21/2018 12/12/2018 Overview (12/12/2018): Last Assessment & Plan: Letter for return to only pre-existing ADHD accommodations after spring. She does need to return for 1-2 more sessions of therapy for her neck. Intractable chronic post-traumatic headache 06/21/2018 12/12/2018 Overview (12/12/2018): Last Assessment & Plan: Try Topamax for headache prevention Infectious mononucleosis-like syndrome 09/16/2016 02/01/2017 Overview (02/01/2017): very consistent symptoms and CBC with many atypical lymphs. Will recheck mono spot today as well as CMV titers. Note given for school. Well hydrated, no significant sore throat, headache, or fever Pain in left foot 01/20/2016 07/10/2019 Overview (02/07/2018): Multiple rounds of PT and negative x-ray. Brief improvement with 3 wks in a fracture boot. Will obtain MRI to eval for stress fracture. Authorization number [id number] until 02/14/15. No findings on imaging. To Dr. Emerson for further management - 10/2015 to discuss MRI findings with ortho, working in PT, no sports for now, diclofenac. Jan 2016 - didn't work per patient and doesn't want to return. Reinjured May 2017. In fracture boot. Xray neg. Feb 2018: still with pain at times Assessment & Plan (02/01/2017 2:05 PM EDT): Will f/u with Antoine as it is bothering her again. Scoliosis 01/20/2016 02/07/2018 Overview (02/07/2018): Normal exam 2018 Assessment & Plan (02/01/2017 2:04 PM EDT): 2017: nothing significant on exam Pediatric body mass index (B CA) of 85th percentile to less than 95th percentile for age 1003/04/2015 02/07/2018 Overview (02/01/2017): Active in dance and cheerleading. Bio mom may have had ED/bulimia in HS so family cautious about discussing this. Jan 2016 - doing well Immunizations Name Administration Dates Next Due DTaP 08/10/2005, 3,01/31/2002,11/07,2001 H1N1 05/13/2009,03/22/2009 HPV Vaccine 9 Valent 07/10/2019 Hep B, ped/adol 04/25/2002,2001,2001 Hib (PRP-T) 10/18/2002, 2,2001,09/13 IPV 08/10/2005, 3,2001,09/13 Influenza 02/11/2009,04/18/2007,03/15/2007 Influenza, injectable, quadr ivalent, preservative free 01/16/2015 Influenza, intranasal, quadrivalent 01/14/2014 Influenza, intranasal, trivalent 02/24/2010 MMR 10/18/2002 MMRV 09/27/2006 Meningococcal Conj (Menactra) MCV4P 07/10/2019,0 12/11/2012 Pneumococcal Conjugate 10/18/2002,2001,2001,09/13 Tdap 12/11/2012 Varicella 07/10/2002 Family History Relation Name Status Comments Maternal Grandmother Mat GMo ther: cancer Mother Mother: allergi es, substance abuse, bulimia as teen Other 1 allergies, subs tance abuse, bulimia as teen Other 2 asthma, eye, hy pertension, cholesterol or lipids, migraine, thyroid disease Other 3 cancer Other 4 heart related s udden Paternal Grandfather Francesca Gr- GFather: heart related sudden Social History Tobacco Use Types Packs/Day Years Used Date Smoking Tobacco: Never Smokeless Tobacco: Never Comments:Juled for a little while, stopped Alcohol Use Standard Drinks/Week Comments No 0 (1 standard drink = 0.6 oz pur e alcohol) Hunger/Food Answer Date Recorded No 02/01/2020 Stable Housing Answer Date Recorded No 02/01/2020 Transportation Concerns Answer Date Rec orded No 02/01/2020 Hazards in Home Answer Date Recorded No 03/19/2020 Financing Utilities Answer Date Recorde d No 03/19/2020 Safety at Home Answer Date Recorded No 03/19/2020 Outside Support Answer Date Recorded No 03/19/2020 Understanding Health Concerns Answer Da te Recorded No 03/19/2020 Financing Health Concerns Answer Date R ecorded No 03/19/2020 Missing School or Work Answer Date Kevin rded No 03/19/2020 Comments No Sex and Gender Information Value Date Recorded Sex Assigned at Not on file Legal Sex Female 9:34 AM EST Gender Identity Not on file Sexual Orientation Not on file Last Filed Vital Signs Vital Sign Reading Time Taken Comments Blood Pressure 134/83 10/02/2019 3:44 PM EDT Pulse 87 07/10/2019 2:01 PM EST Temperature 36.4 ??C (97.6 ??F) 05/17/2019 11:[address] Respiratory Rate 20 02/11/2019 4:09 PM EDT Oxygen Saturation 98% 02/11/2019 4:09 PM EDT Inhaled Oxygen Concentration - - Weight 68.1 kg (150 lb 3.2 oz) 10/02/2019 3:39 P M EDT Height 163.8 cm (5' 4.5 ) 10/02/2019 3:39 PM EDT Body Mass Index 25.38 10/02/2019 3:39 PM EDT Plan of Treatment Health Maintenance Due Date Last Done Comments Varicella Vaccines (2 of 2 - 2-dose childhood series) 02/11/2014 09/27/2006, 09/27/2006, 07/10/2002 Men B Vaccine (1 of 2 - Standard) 2017 HPV Vaccines (2 - 3-dose series) 08/07/2019 07/10/2019 Influenza Vaccines (#1) 2023 02/28/20, 01/16/2015, 01/14/2014, Additional history exists COVID-19 Vaccine (2 - season) 2024 01/27/2023 DTaP,Tdap,and Td Vaccines (8 - Td or Tdap) 03/22/2033 03/22/2023, 12/11/2012, 08/10/2005, Additional history exists Hepatitis B Vaccines Completed 04/25/2002, 2001, 2001 HIB Vaccines Completed 10/18/2002, 01/07, 2001, Additional history exists Pneumococcal Vaccine Completed 10/18/2002, 01/31/2002, 2001, Additional history exists IPV Vaccines Completed 08/10/2005, 09/2002, 2001, Additional history exists MMR Vaccines Completed 09/27/2006, 09/06, 10/18/2002, Additional history exists Meningococcal Vaccine Completed 07/10/2019, 013 Hepatitis A Vaccines Aged Out No long er eligible based on patient's age to complete this topic Procedures * Due to [place] [employer] law, this organization might not be sharing sensitive test results. Procedure Name Priority Date/Time Associated Diagnosis Comments CHLAMYDIA AND GONORRHEA, AMPLIFIED Routine 10/02/2019 5:08 PM EDT High risk sexual behavior, unspecified type from Last 3 Months or Most Recently Relevant to Health Maintenance Results * Due to [place] [employer] law, this organization might not be sharing sensitive test results. * (ABNORMAL) Chlamydia and Gonorrhoea, Amplified (10/02/2019 5:08 PM EDT) Chlamydia trachomatis RNA, TMA Detected(A) Not Detected 10/03/2019 10:55 AM EDT [facility] Neisseria gonorrhoeae, JARVIS Not Detected Not Detected 10/03/2019 10:55 AM EDT [facility] Specimen Type URINE 10/03/2019 10:55 AM EDT [facility] Urine 10/02/2019 5:08 PM EDT 10/02/2019 5:12 PM EDT us Paty Pickens MD LAB MICROBIOLOGY - GENERAL OR DERABLES Final Result [facility] from Last 3 Months or Most Recently Relevant to Health Maintenance
[2024-06-04 13:06] LABS: C Reactive Protein 0.33 mg/dL (< or = 0.50)
[2024-06-04 13:43] LABS: Folate 16.1 ng/mL (> or = 4.0); Vitamin B12 569 pg/mL (200-900)
[2024-06-04 14:26] LABS: Syphilis Screen Nonreactive (Nonreactive)
[2024-06-04 19:06] LABS: Erythrocyte Sedimentation Rate 8 MM/HR (0-20)
== END 2024-06-04 11:35 | disposition home or self-care (01) ==
LOC: HO.LAB 11:34
PROVIDERS: PCP Internal Medicine; Visit Provider Physician Assistant Medical
DX: R50.9 Fever, unspecified (principal); R30.0 Dysuria; R10.9 Unspecified abdominal pain; R00.2 Palpitations
CPT/HCPCS: 36415; 81003; 82607; 82746; 85027; 85652; 86140; 86780